=== PATIENT | male | born 1975 | race Caucasian/White ===

== ENCOUNTER → 2018-02-24 08:06 | Outpatient (CLI) | payer OTHER, SELFPAY ==
[2018-02-24 10:27] LABS: Cholesterol 175 mg/dL (200); Creatinine, Serum 1.11 mg/dL (0.70-1.30); EST Glomerular Filtration Rate 78 mL/min (>60); Est Glom Filt Rate - Afr Amer 94 mL/min (>60); Glucose 100 mg/dL (74-106); High Density Lipoprotein 36 mg/dL; Triglycerides 165 mg/dL; Very Low Density Lipoprotein 33 mg/dL (5-40)
== END ==
PROVIDERS: Family Provider Family Medicine; PCP Family Medicine; Visit Provider Family Medicine
DX: Z00.00 Encounter for general adult medical examination without abnormal findings (principal)
CPT/HCPCS: 36415; 80061; 82565; 82947

== ENCOUNTER → 2018-12-24 | Outpatient (CLI) | payer OTHER, SELFPAY ==
[2018-12-24 09:56] LABS: Absolute Lymphocyte Count 1.07 X10^3/uL (0.83-4.51); Absolute Neutrophil Count 3.7 X10^3/uL (2.0-7.7); Basophil# 0.04 X10^3/uL; Basophil% 0.7 % (0-1); Eosinophil# 0.09 X10^3/uL; Eosinophils% 1.7 % (0-5); Hematocrit 42.4 % (40-54); Hemoglobin 14.6 g/dL (13.0-16.5); Lymphocyte # 1.07 X10^3/ul (4.0); Lymphocyte % 19.8 % (19-41); Mean Corp Hgb Conc 34.4 g/dL (32-36); Mean Corpuscular Hgb 32.1 pg (27.0-32.0); Mean Corpuscular Volume 93.2 fL (80-94); Mean Platelet Vol. 11.4 fl (6.2-12.0); Monocyte# 0.54 X10^3/uL; NRBC Flagged by Analyzer 0 % (0-5); Neutrophil # 3.65 X10^3/uL (2.7-7.7); Neutrophil % 67.4 % (47-70); Platelet Count 176 K/mm3 (150-450); RBC Distribution Width CV 12.3 % (11.6-14.6); RBC Distribution Width SD 42.6 fl (35.1-43.9); Red Blood Count 4.55 M/mm3 (4.6-6.2); White Blood Count 5.4 K/mm3 (4.4-11.0)
[2018-12-24 10:17] LABS: Microalbumin,Random Urine 19.6 mg/L (NO RANGE EST.)
[2018-12-24 10:48] LABS: ALB/GLOB Ratio 1.3 RATIO (0.9-2.4); AST(SGOT) 19 U/L (15-37); Alanine Aminotransfer ALT/SGPT 32 U/L (16-61); Albumin, Serum 3.9 g/dL (3.2-5.0); Alkaline Phosphatase 69 U/L (45-117); Anion Gap 9 (5-15); BUN 15 mg/dL (7-18); BUN/Creat Ratio 14.2 RATIO (10-20); Calcium,Total 8.7 mg/dL (8.5-10.1); Chloride 109 mmol/L (98-107); Cholesterol 132 mg/dL (200); Creatinine, Serum 1.06 mg/dL (0.70-1.30); EST Glomerular Filtration Rate 82 mL/min (>60); Est Glom Filt Rate - Afr Amer 99 mL/min (>60); Globulin 3.1 g/dL (2.2-4.2); Glucose 84 mg/dL (74-106); High Density Lipoprotein 51 mg/dL; Potassium 3.8 mmol/L (3.5-5.1); Sodium Level 145 mmol/L (136-145); Thyroid Stim Hormone (TSH) 1.07 uIU/mL (0.358-3.74); Triglycerides 64 mg/dL; Very Low Density Lipoprotein 13 mg/dL (5-40)
[2018-12-28 09:10] LABS: Immunoglobulin E 73 IU/mL (6-495)
== END | disposition home or self-care (01) ==
LOC: MFPLAB 09:00
PROVIDERS: Family Provider Family Medicine; PCP Family Medicine; Referring Provider Family Medicine; Visit Provider Family Medicine
DX: J39.2 Other diseases of pharynx (principal); R53.83 Other fatigue; Z13.220 Encounter for screening for lipoid disorders
CPT/HCPCS: 36415; 80053; 80061; 82043; 82570; 82785; 84403; 84443; 85025

== ENCOUNTER → 2024-09-15 | Outpatient (CLI) | payer OTHER, SELFPAY ==
[2024-09-15 12:33] LABS: Absolute Lymphocyte Count 1.27 X10^3/uL (0.83-4.51); Absolute Neutrophil Count 4.8 X10^3/uL (2.0-7.7); Basophil# 0.02 X10^3/uL; Basophil% 0.3 % (0-1); Eosinophil# 0.18 X10^3/uL; Eosinophils% 2.6 % (0-5); Hematocrit 42.2 % (40-54); Hemoglobin 15.1 g/dL (13.0-16.5); Lymphocyte # 1.27 X10^3/ul (0.83-4.51); Lymphocyte % 18.1 % (19-41); Mean Corp Hgb Conc 35.8 g/dL (32-36); Mean Corpuscular Hgb 32.1 pg (27.0-32.0); Mean Corpuscular Volume 89.6 fL (80-94); Mean Platelet Vol. 11.5 fl (6.2-12.0); Monocyte# 0.75 X10^3/uL; Monocyte% 10.7 % (0-10); NRBC Flagged by Analyzer 0 % (0-5); Neutrophil # 4.78 X10^3/uL (2.7-7.7); Platelet Count 206 K/mm3 (150-450); RBC Distribution Width CV 12.3 % (11.6-14.6); RBC Distribution Width SD 40.3 fl (35.1-43.9); Red Blood Count 4.71 M/mm3 (4.6-6.2)
[2024-09-15 13:11] LABS: ALB/GLOB Ratio 1.7 RATIO (0.9-2.4); AST(SGOT) 79 U/L (<=37); Alanine Aminotransfer ALT/SGPT 54 U/L (<=46); Albumin, Serum 4.5 g/dL (3.5-5.0); Alkaline Phosphatase 75 U/L (40-129); Anion Gap 11 (5-15); BUN 16 mg/dL (4-19); BUN/Creat Ratio 13.6 RATIO (10-20); Calcium,Total 9.4 mg/dL (7.6-11.0); Carbon Dioxide 22.7 mmol/L (21.0-32.0); Chloride 106 mmol/L (98-108); Creatinine, Serum 1.16 mg/dL (0.70-1.20); EST Glomerular Filtration Rate 79 (>60); Globulin 2.7 g/dL (2.2-4.2); Glucose 105 mg/dL (70-99); Potassium 3.7 mmol/L (3.3-5.1); Protein, Total 7.1 g/dL (5.9-8.4); Sodium Level 139 mmol/L (133-145); Total Bilirubin 0.55 mg/dL (0.00-1.30)
== END | disposition home or self-care (01) ==
LOC: BIMLAB 10:50
PROVIDERS: PCP Family Medicine; Referring Provider Family Medicine; Visit Provider Family Medicine
DX: N52.9 Male erectile dysfunction, unspecified (principal); E66.812 Obesity, class 2
CPT/HCPCS: 36415; 80053; 84402; 84403; 84443; 85025

== ENCOUNTER → 2024-09-16 | Outpatient (CLI) | payer OTHER, SELFPAY ==
[2024-09-17 11:30] LABS: Hepatitis B Surface Antigen Nonreactive (Nonreactive); Hepatitis C Antibody Nonreactive (Nonreactive)
[2024-09-17 11:36] LABS: CRP < 3.00 mg/L (0.0-3.0)
[2024-09-18 15:08] LABS: Anti-Smooth Muscle ABS 6 Units (0-19); Deamidated Gliadin IgA 4 units (0-19); Deamidated Gliadin IgG 2 units (0-19); Endomysial Antibody IgA Negative (Negative); Hepatitis A AB, Total Negative (Negative); Immunoglobulin A 194 mg/dL (90-386); t-Transglutaminase IgA <2 U/mL (0-3)
== END | disposition home or self-care (01) ==
LOC: BIMLAB 15:43
PROVIDERS: PCP Family Medicine; Referring Provider Family Medicine; Visit Provider Family Medicine
DX: R79.89 Other specified abnormal findings of blood chemistry (principal)
CPT/HCPCS: 82784; 83516; 86140; 86255; 86708; 86803; 87340

== ENCOUNTER → 2024-10-06 | Outpatient (CLI) | payer OTHER, SELFPAY ==
--- OUTSIDE RECORDS SUMMARY | 2024-10-06 07:28 | XMS RPT_ITS | CCD ---
Author Organization [facility] Care Team Providers Care Inspector Bullet Slugs Name Role Phone Balaji DICK, Dr. Woo Primary Care Provider Balaji DICK, Dr. Woo Attending Provider [phone] Balaji DICK, Dr. Woo Referring Provider Chilo Carpio Attending Unavailable Chilo Carpio Primary Care Unavailable Chilo Carpio Referring Unavailable Chilo Carpio Primary Care Unavailable Chilo Carpio Referring Unavailable Chilo Carpio Attending Unavailable Chilo Carpio Attending Unavailable Chilo Carpio Primary Care Unavailable Chilo Carpio Referring Unavailable Problems Problem Classification Problem Date Documented Da te Episodic/Chronic Other male genital disorders (1 source) Male erectile dysfunction, unspecified; Translations: [Male erectile dysfunction, unspecified] Onset: 09-23-2024 Chronic Other screening for suspected conditions (not mental disorders or infectious disease) (2 sources) Other specified abnormal findings of blood chemistry; Translations: [Other specified abnormal findings of blood chemistry] Onset: 09-23-2024 Episodic Results Test Name Value Interpretation Reference Range Facility Testosterone, Total / Freeon 09-24-2024 TESTOSTER,FREE 7.64 ng/dL Normal 5.00-21.00 [facility] Comment on above: Order Comment: Order Date: 08/06/24 Order Info: 0024-1 - TESTF N Performed By: #### L 500.4050, L501.9520, L100.0100, L3100.5310 #### [facility] [address] [place], [address] TESTOSTER,TOTAL 386 ng/dL Normal 264-916 [facility] Comment on above: Order Comment: Order Date: 08/06/24 Order Info: 0024-1 - TESTF N Result Comment: Adul t male reference interval is based on a population of healthy nonobese males (BMI <30) between 19 and 39 years old. Sarah, et.al. JCEM 2017,102;[id number]. PMID: [id number]. Performed By: #### L 500.4050, L501.9520, L100.0100, L3100.5310 #### [facility] [address] [place], [place], [address] TESTOSTERONE,%F 1.98 Normal 1.50-4.20 [facility] Comment on above: Order Comment: Order Date: 08/06/24 Order Info: 0024-1 - TESTF N Result Comment: Perf ormed at: [facility] [address] [id number] Power Press Tender: Peirre Castro PhD, Phone: [phone] Performed at: [facility] [address] [id number] Power Press Tender: Mitesh Lion MD, Phone: [phone] Performed By: #### L 500.4050, L501.9520, L100.0100, L3100.5310 #### [facility] [address] [place], [place], [address] Anti-Smooth Muscle ABSon ANTISMOOTH MUSC 6 Units Normal 0-19 [facility] Comment on above: Order Comment: Order Date: 09/16/24 Order Info: 68855-4 - HEAT Order Info: 0751-1 - CELAB Result Comment: Nega tive 0 - 19 Weak positive 20 - 30 Moderate to strong positive >30 Actin Antibodies are found in 52-85% of patients with autoimmune hepatitis or chronic active hepatitis and in 22% of patients with primary biliary cirrhosis. Performed By: #### L 3890.6102, L3890.6301, L803.2200 #### [facility] [address] [place], [address] Celiac AB,Comprehensiveon ANTIGLIADIN IGA 4 units Normal 0-19 [facility] Comment on above: Order Comment: Order Date: 09/16/24 Order Info: - HEAT Order Info: 07504-29 - CELAB Result Comment: Nega tive 0 - 19 Weak Positive 20 - 30 Moderate to Strong Positive >30 Performed By: #### L 3410.2350, L3100.0300, L501.6710 #### [facility] [address] [place], [address] ANTIGLIADIN IGG 2 units Normal 0-19 [facility] Comment on above: Order Comment: Order Date: 09/16/24 Order Info: - HEAT Order Info: 750-04 - CELAB Result Comment: Nega tive 0 - 19 Weak Positive 20 - 30 Moderate to Strong Positive >30 Performed By: #### L 3410.2350, L3100.0300, L501.6710 #### [facility] [address] [place], [place], [id number] ENDOMYSIAL IGA Negative Normal Negative [facility] Comment on above: Order Comment: Order Date: 09/16/24 Order Info: - Order Info: 750-04 - CELAB Performed By: #### L 3410.2350, L3100.0300, L501.6710 #### [facility] [address] [place], [address] IMMUNOGLOB A QN 194 mg/dL Normal 90-386 [facility] Comment on above: Order Comment: Order Date: 09/16/24 Order Info: - Order Info: 07504-29 - CELAB Performed By: #### L 3410.2350, L3100.0300, L501.6710 #### [facility] [address] [place], [address] tTG IGA <2 Normal 0-3 [facility] Comment on above: Order Comment: Order Date: 09/16/24 Order Info: - HEAT Order Info: 07504-29 - CELAB Result Comment: Nega tive 0 - 3 Weak Positive 4 - 10 Positive >10 Tissue Transglutaminase (tTG) has been identified as the endomysial antigen. Studies have demonstr- ated that endomysial IgA antibodies have over 99% specificity for gluten sensitive enteropathy. Performed By: #### L 3410.2350, L3100.0300, L501.6710 #### [facility] [address] [place], [place], [id number] tTG IGG <2 Normal 0-5 [facility] Comment on above: Order Comment: Order Date: 09/16/24 Order Info: - HEAT Order Info: 0751-1 - CELAB Result Comment: Nega tive 0 - 5 Weak Positive 6 - 9 Positive >9 Performed By: #### L 3410.2350, L3100.0300, L56710 #### [facility] [address] [place], [address] Hepatitis A AB, Totalon 08-28 HEPATITIS A,TOT Negative Normal Negative [facility] Comment on above: Order Comment: Order Date: 09/16/24 Order Info: - HEAT Order Info: 075-1 - CELAB Result Comment: Comm ent: The HAV total antibody assay detects both IgG and IgM but does not differentiate between them. A negative result suggests susceptibility to infection. A positive result could be due to vaccination, previously resolved infection or active infection. Testing for HAV IgM should be performed if active HAV infection is suspected. [facility] offers profiles that will automatically reflex positive HAV total antibody results to IgM (e.g., panel #[id number] HAV Antibody w/ Rfx). Performed at: [address] [id number] Power Press Tender: Pierre Castro PhD, Phone: [phone] Performed By: #### L 3410.2350, L3100.0300, L5.6710 #### [facility] [address] [place], [place], [id number] CRPon 09-17-2024 C-REACTIVE PROT < 3.00 Normal 0.0-3.0 [facility] Comment on above: Order Comment: Order Date: 09/16/24 Order Info: [id number] - CRP Performed By: #### L 3410.2350, L3100.0300, L501.6710 #### [facility] [address] [facility] [place], [place], [id number] Hepatitis C Antibodyon 09-17 Hepatitis C Ab Non-Reactive Normal Nonreactive [facility] Comment on above: Order Comment: Order Date: 09/16/24 Order Info: 04659-0 - CRP Result Comment: Reac tive: Presumptive evidence of antibodies to HCV. Follow CDC recommendations for supplemental testing. Non-Reactive: Antibodies to HCV were not detected; does not exclude the possibility of exposure to HCV Reactive Results are presumptive evidence of antibodies to HCV. Follow CDC recommendations for supplemental testing. Order confirmation testing: HCV Quant by PCR testing - HCVPCR #[id number] Non Reactive: < 0.8 Equivocal: >/= 0.8 to < 1.0 Reactive: >/= 1.0 The CDC requires that a reactive/equivocal HCV antibody result be sent out for confirmation. HCV Quant by PCR testing. Performed By: #### L 3890.6102, L3890.6301, L803.2200 #### [facility] [address] [facility] [place], [place], [id number] L3890.6102on 09-17-2024 HEP B Surf Ag Non-Reactive Normal Nonreactive [facility] Comment on above: Order Comment: Order Date: 09/16/24 Order Info: [id number] - CRP Result Comment: Reac tive: Presumptive evidence of HBV. Repeatedly reactive samples must be confirmed using a neutralization test ([employer] HBsAg Confirmatory Test) Non-Reactive: HBsAg not detected; does not exclude the possibility of exposure to HBV Performed By: #### L 3890.6102, L3890.6301, L803.2200 #### [facility] [address] [place], [place], [id number] Laboratory - Microbiology an d Antimicrobial susceptibilityOrdered By: Chilo Carpio on 09-16-2024 HBV surface Ag Ql (S) Non-Reactive Nonreactive [facility] Comment on above: Reactive: Presumptiv e evidence of HBV. Repeatedly reactive samples must be confirmed using a neutralization test ([employer] HBsAg Confirmatory Test)Non-Reactive: HBsAg not detected; does not exclude the possibility of exposure to HBV No Panel InformationOrdered By: Chilo Carpio on 09-16-2024 Tissue Transglutaminase IgG Ab <2 U/mL 0-5 [facility] Comment on above: Negative 0 - 5 Weak Positive 6 - 9 Positive >9 Serum or plasma C reactive p rotein measurement (mass/volume)Ordered By: Chilo Carpio on 09-16-2024 CRP [Mass/Vol] mg/L 0.0-3.0 [facility] Serum or plasma actin IgG an tibody assay (units/volume)Ordered By: Chilo Carpio on 09-16-2024 Actin IgG Qn 6 Units 0-19 [facility] Comment on above: Negative 0 - 19 Weak positive 20 - 30 Moderate to strong positive >30 Actin Antibodies are found in 52-85% of patients with autoimmune hepatitis or chronic active hepatitis and in 22% of patients with primary biliary cirrhosis. Serum tissue transglutaminas e (tTG) IgA antibody assay (units/volume)Ordered By: Chilo Carpio on 09-16-2024 tTG IgA Qn (S) <2 U/mL 0-3 [facility] Comment on above: Negative 0 - 3 Weak Positive 4 - 10 Positive >10 Tissue Transglutaminase (tTG) has been identified as the endomysial antigen. Studies have demonstr- ated that endomysial IgA antibodies have over 99% specificity for gluten sensitive enteropathy. Absolute lymphocyte countOrd ered By: Chilo Carpio on 09-15-2024 Lymphocytes Auto (Unsp spec) [#/Vol] 1.27 10*3/uL 0.83-4.51 [facility] Absolute neutrophil countOrd ered By: Chilo Carpio on 09-15-2024 Neutrophils (Bld) [#/Vol] 4.8 10*3/uL 2.0-7.7 [facility] Anion gap in Serum or Plasma Ordered By: Chilo Carpio on 09-15-2024 Anion gap [Moles/Vol] 11 mmol/L 5-15 [facility] Automated lymphocyte count a s percentage of total leukocytesOrdered By: Chilo Carpio on 09-15-2024 Lymphocytes/100 WBC Auto (Unsp spec) 18.1 % Low 19- [facility] BUN/creatinine ratioOrdered By: Chilo Carpio on 09-15-2024 Urea nitrogen/Creatinine [Mass ratio] 13.6 mg/mg - [facility] Basophil percentageOrdered B y: Chilo Carpio on 09-15-2024 Basophils/100 WBC (Bld) 0.3 % 0-1 [facility] Bilirubin, totalOrdered By: Chilo Carpio on 09-15-2024 Bilirubin [Mass/Vol] 0.55 mg/dL 0.00-1.30 [facility] CBC W/Diff, Automatedon 08-28 Absolute Lymph 1.27 X10 3/uL Normal 0.83-4.51 [facility] Comment on above: Order Comment: Order Date: 08/06/24 Order Info: 0184-1 - CBCD Performed By: #### L 500.4050, L501.9520, L100.0100, L3100.5310 #### [facility] [address] [place], [address] Absolute Neut 4.8 X10 3/uL Normal 2.0-7.7 [facility] Comment on above: Order Comment: Order Date: 08/06/24 Order Info: 0184-1 - CBCD Performed By: #### L 500.4050, L501.9520, L100.0100, L3100.5310 #### [facility] [address] [place], [address] Basophils/100 WBC (Bld) 0.3 % Normal 0-1 [facility] Comment on above: Order Comment: Order Date: 08/06/24 Order Info: 0184-1 - CBCD Performed By: #### L 500.4050, L501.9520, L100.0100, L3100.5310 #### [facility] [address] [place], [address] Eosinophils/100 WBC (Bld) 2.6 % Normal 0-5 [facility] Comment on above: Order Comment: Order Date: 08/06/24 Order Info: 0184-1 - CBCD Performed By: #### L 500.4050, L501.9520, L100.0100, L3100.5310 #### [facility] [address] [place], [address] Erythrocyte distribution width (RBC) [Ratio] 12.3 % Normal 11.6-14.6 [facility] Comment on above: Order Comment: Order Date: 08/06/24 Order Info: 0184- - CBCD Performed By: #### L 500.4050, L501.9520, L100.0100, L3100.5310 #### [facility] [address] [place], [address] Hematocrit (Bld) [Volume fraction] 42.2 % Normal 40-54 [facility] Comment on above: Order Comment: Order Date: 08/06/24 Order Info: 0184- - CBCD Performed By: #### L 500.4050, L501.9520, L100.0100, L3100.5310 #### [facility] [address] [place], [address] Hemoglobin (Bld) [Mass/Vol] 15.1 g/dL Normal 13.0-16.5 [facility] Comment on above: Order Comment: Order Date: 08/06/24 Order Info: 0184- - CBCD Performed By: #### L 500.4050, L501.9520, L100.0100, L3100.5310 #### [facility] [address] [place], [address] IG% 0.300 Normal 0.0-0.9 [facility] Comment on above: Order Comment: Order Date: 08/06/24 Order Info: 0184-1 - CBCD Result Comment: IG% - Immature Granulocytes (promyelocytes, myelocytes and metamyelocytes) > 1% indicates that a LEFT SHIFT is Present. Performed By: #### L 500.4050, L501.9520, L100.0100, L3100.5310 #### [facility] [address] [place], [address] Lymphocytes/100 WBC (Bld) 18.1 % Low 19-41 [facility] Comment on above: Order Comment: Order Date: 08/06/24 Order Info: 0184-1 - CBCD Performed By: #### L 500.4050, L501.9520, L100.0100, L3100.5310 #### [facility] [address] [place], [address] MCH (RBC) [Entitic mass] 32.1 pg High 27.0-32.0 [facility] Comment on above: Order Comment: Order Date: 08/06/24 Order Info: 0184- - CBCD Performed By: #### L 500.4050, L501.9520, L100.0100, L3100.5310 #### [facility] [address] [place], [address] MCHC (RBC) [Mass/Vol] 35.8 g/dL Normal 32-36 [facility] Comment on above: Order Comment: Order Date: 08/06/24 Order Info: 0184-1 - CBCD Performed By: #### L 500.4050, L501.9520, L100.0100, L3100.5310 #### [facility] [address] [place], [address] MCV (RBC) [Entitic vol] 89.6 fL Normal 80-94 [facility] Comment on above: Order Comment: Order Date: 08/06/24 Order Info: 0184-1 - CBCD Performed By: #### L 500.4050, L501.9520, L100.0100, L3100.5310 #### [facility] [address] [place], [address] Monocytes/100 WBC (Bld) 10.7 % High 0-10 [facility] Comment on above: Order Comment: Order Date: 08/06/24 Order Info: 0184-1 - CBCD Performed By: #### L 500.4050, L501.9520, L100.0100, L3100.5310 #### [facility] [address] [place], [address] Neutrophils/100 WBC (Bld) 68.0 % Normal 47-70 [facility] Comment on above: Order Comment: Order Date: 08/06/24 Order Info: 0184-1 - CBCD Performed By: #### L 500.4050, L501.9520, L100.0100, L3100.5310 #### [facility] [address] [place], [address] Nucleated RBC (Bld) [#/Vol] 0 10*3/uL Normal 0-5 [facility] Comment on above: Order Comment: Order Date: 08/06/24 Order Info: 0184-1 - CBCD Performed By: #### L 500.4050, L501.9520, L100.0100, L3100.5310 #### [facility] [address] [place], [address] Platelet mean volume (Bld) [Entitic vol] 11.5 fL Normal 6.2-12.0 [facility] Comment on above: Order Comment: Order Date: 08/06/24 Order Info: 0184-1 - CBCD Performed By: #### L 500.4050, L501.9520, L100.0100, L3100.5310 #### [facility] [address] [place], [address] Platelets (Bld) [#/Vol] 206 10*3/uL Normal 150-450 [facility] Comment on above: Order Comment: Order Date: 08/06/24 Order Info: 0184-1 - CBCD Performed By: #### L 500.4050, L501.9520, L100.0100, L3100.5310 #### [facility] [address] [place], [address] RBC (Bld) [#/Vol] 4.71 10*6/uL Normal 4.6-6.2 [facility] Comment on above: Order Comment: Order Date: 08/06/24 Order Info: 0184-1 - CBCD Performed By: #### L 500.4050, L501.9520, L100.0100, L3100.5310 #### [facility] [address] [place], [address] RDW SD 40.3 fl Normal 35.1-43.9 [facility] Comment on above: Order Comment: Order Date: 08/06/24 Order Info: 0184- - CBCD Performed By: #### L 500.4050, L501.9520, L100.0100, L3100.5310 #### [facility] [address] [place], [address] WBC (Bld) [#/Vol] 7.0 10*3/uL Normal 4.4-11.0 [facility] Comment on above: Order Comment: Order Date: 08/06/24 Order Info: 0184- - CBCD Performed By: #### L 500.4050, L501.9520, L100.0100, L3100.5310 #### [facility] [address] [place], [address] Carbon dioxide, total [Moles /volume] in Central venous bloodOrdered By: Chilo Carpio on 09-15-2024 CO2 [Moles/Vol] 22.7 mmol/L 21.0-32.0 [facility] Chloride assayOrdered By: Vidal Carpio on 09-15-2024 Chloride [Moles/Vol] 106 mmol/L 98-108 [facility] Comprehensive Metabolic Prof ilon 09-15-2024 Albumin [Mass/Vol] 4.5 g/dL Normal 3.5-5.0 [facility] Comment on above: Order Comment: Order Date: 08/06/24 Order Info: 0786-1 - CMP Order Info: 3015-3 - TSH Performed By: #### L 500.4050, L501.9520, L100.0100, L3100.5310 #### [facility] [address] [place], [address] Albumin/Globulin [Mass ratio] 1.7 {ratio} Normal 0.9-2.4 [facility] Comment on above: Order Comment: Order Date: 08/06/24 Order Info: 0786-1 - CMP Order Info: 3013 - TSH Performed By: #### L 500.4050, L501.9520, L100.0100, L3100.5310 #### [facility] [address] [place], [address] ALK PHOS 75 U/L Normal 40-129 [facility] Comment on above: Order Comment: Order Date: 08/06/24 Order Info: 0786-1 - CMP Order Info: 301-3 - TSH Performed By: #### L 500.4050, L501.9520, L100.0100, L3100.5310 #### [facility] [address] [place], [address] ALT [Catalytic activity/Vol] 54 U/L High <=46 [facility] Comment on above: Order Comment: Order Date: 08/06/24 Order Info: 0786-1 - CMP Order Info: 301-3 - TSH Performed By: #### L 500.4050, L501.9520, L100.0100, L3100.5310 #### [facility] [address] [place], [address] AST [Catalytic activity/Vol] 79 U/L High <=37 [facility] Comment on above: Order Comment: Order Date: 08/06/24 Order Info: 0786-1 - CMP Order Info: 3016-3 - TSH Performed By: #### L 500.4050, L501.9520, L100.0100, L3100.5310 #### [facility] [address] [place], [address] Bilirubin [Mass/Vol] 0.55 mg/dL Normal 0.00-1.30 [facility] Comment on above: Order Comment: Order Date: 08/06/24 Order Info: 0786-1 - CMP Order Info: 3 - TSH Performed By: #### L 500.4050, L501.9520, L100.0100, L3100.5310 #### [facility] [address] [place], [address] BUN/CRE 13.6 RATIO Normal 10-20 [facility] Comment on above: Order Comment: Order Date: 08/06/24 Order Info: 0786- - CMP Order Info: 3015-06 - TSH Performed By: #### L 500.4050, L501.9520, L100.0100, L3100.5310 #### [facility] [address] [place], [address] Calcium [Mass/Vol] 9.4 mg/dL Normal 7.6-11.0 [facility] Comment on above: Order Comment: Order Date: 08/06/24 Order Info: 0786- - CMP Order Info: 30109-29 - TSH Performed By: #### L 500.4050, L501.9520, L100.0100, L3100.5310 #### [facility] [address] [place], [address] Chloride [Moles/Vol] 106 mmol/L Normal 98-108 [facility] Comment on above: Order Comment: Order Date: 08/06/24 Order Info: 0786-1 - CMP Order Info: 30109-29 - TSH Performed By: #### L 500.4050, L501.9520, L100.0100, L3100.5310 #### [facility] [address] [place], [address] CO2 [Moles/Vol] 22.7 mmol/L Normal 21.0-32.0 [facility] Comment on above: Order Comment: Order Date: 08/06/24 Order Info: 0786-1 - CMP Order Info: 3 - TSH Performed By: #### L 500.4050, L501.9520, L100.0100, L3100.5310 #### [facility] [address] [place], [address] Creatinine [Mass/Vol] 1.16 mg/dL Normal 0.70-1.20 [facility] Comment on above: Order Comment: Order Date: 08/06/24 Order Info: 0786-1 - [facility] Order Info: 3015-06 - TSH Performed By: #### L 500.4050, L501.9520, L100.0100, L3100.5310 #### [facility] [address] [place], [address] GAP 11 Normal 5-15 [facility] Comment on above: Order Comment: Order Date: 08/06/24 Order Info: 0786-1 - [facility] Order Info: 3015-06 - TSH Performed By: #### L 500.4050, L501.9520, L100.0100, L3100.5310 #### [facility] [address] [place], [address] GFR/1.73 sq M.predicted among non-blacks MDRD (S/P/Bld) [Vol rate/Area] 79 mL/min/{1.73_m2} Normal >60 [facility] Comment on above: Order Comment: Order Date: 08/06/24 Order Info: 0786-1 - [facility] Order Info: 3015-06 - TSH Result Comment: mL/m in/1.73m2 CKD-EPI Creatinine Equation (2020) Performed By: #### L 500.4050, L501.9520, L100.0100, L3100.5310 #### [facility] [address] [place], [address] Globulin (S) [Mass/Vol] 2.7 g/dL Normal 2.2-4.2 [facility] Comment on above: Order Comment: Order Date: 08/06/24 Order Info: 0786-1 - CMP Order Info: 3 - TSH Performed By: #### L 500.4050, L501.9520, L100.0100, L3100.5310 #### [facility] [address] [place], [address] Glucose [Mass/Vol] 105 mg/dL High 70-99 [facility] Comment on above: Order Comment: Order Date: 08/06/24 Order Info: 0786- - [facility] Order Info: 3013 - TSH Performed By: #### L 500.4050, L501.9520, L100.0100, L3100.5310 #### [facility] [address] [place], [address] Potassium [Moles/Vol] 3.7 mmol/L Normal 3.3-5.1 [facility] Comment on above: Order Comment: Order Date: 08/06/24 Order Info: 0786-1 - CMP Order Info: 3013 - TSH Performed By: #### L 500.4050, L501.9520, L100.0100, L3100.5310 #### [facility] [address] [place], [address] Sodium [Moles/Vol] 139 mmol/L Normal 133-145 [facility] Comment on above: Order Comment: Order Date: 08/06/24 Order Info: 0786-1 - [facility] Order Info: 3013 - TSH Performed By: #### L 500.4050, L501.9520, L100.0100, L3100.5310 #### [facility] [address] [place], [address] T PROT 7.1 g/dL Normal 5.9-8.4 [facility] Comment on above: Order Comment: Order Date: 08/06/24 Order Info: 0786-1 - CMP Order Info: 3016-3 - TSH Performed By: #### L 500.4050, L501.9520, L100.0100, L3100.5310 #### [facility] [address] [place], [place], [id number] Urea nitrogen [Mass/Vol] 16 mg/dL Normal 4-19 [facility] Comment on above: Order Comment: Order Date: 08/06/24 Order Info: 0786-1 - CMP Order Info: 3016-3 - TSH Performed By: #### L 500.4050, L501.9520, L100.0100, L3100.5310 #### [facility] [address] [place], [place], [address] Eosinophil percentageOrdered By: Chilo Carpio on 09-15-2024 Eosinophils/100 WBC (Bld) 2.6 % 0-5 [facility] Erythrocyte distribution wid th ratioOrdered By: Chilo Carpio on 09-15-2024 Erythrocyte distribution width (RBC) [Ratio] 12.3 % 11.6-14.6 [facility] Erythrocyte distribution wid th standard deviationOrdered By: Chilo Carpio on 09-15-2024 Erythrocyte distribution width (RBC) [Ratio] 40.3 fl 35.1-43.9 [facility] Glomerular filtration rate ( GFR) estimation/1.73 sq m using serum, plasma, or whole bOrdered By: Chilo Carpio on 09-15-2024 GFR/1.73 sq M.predicted among non-blacks MDRD (S/P/Bld) [Vol rate/Area] 79 mL/min/{1.73_m2} >60 [facility] Comment on above: mL/min/1.73m2 CKD-EP I Creatinine Equation (2020) Hematocrit Auto (Bld) [Volum e fraction]Ordered By: Chilo Carpio on 09-15-2024 Hematocrit (Bld) [Volume fraction] 42.2 % 40-54 [facility] Hemoglobin measurementOrdere d By: Chilo Carpio on 09-15-2024 Hemoglobin (Bld) [Mass/Vol] 15.1 g/dL 13.0-16.5 [facility] Immature granulocytes/100 WB C Auto (Bld)Ordered By: Chilo Carpio on 09-15-2024 Immature granulocytes/100 WBC (Bld) 0.300 % 0.0-0.9 [facility] Comment on above: IG% - Immature Granu locytes (promyelocytes, myelocytes and metamyelocytes) > 1% indicates that a LEFT SHIFT is Present. Laboratory - Chemistry and C hemistry - challengeOrdered By: Chilo Carpio on 09-15-2024 AST [Catalytic activity/Vol] 79 U/L High <38 [facility] MCV (mean corpuscular volume ) determinationOrdered By: Chilo Carpio on 09-15-2024 MCV (RBC) [Entitic vol] 89.6 fL 80-94 [facility] Mean corpuscular hemoglobin (MCH) determinationOrdered By: Chilo Carpio on 09-15-2024 MCH (RBC) [Entitic mass] 32.1 pg High 27.0-32.0 [facility] Mean corpuscular hemoglobin concentration (MCHC) determinationOrdered By: Chilo Carpio on 09-15-2024 MCHC (RBC) [Mass/Vol] 35.8 g/dL 32-36 [facility] Mean platelet volume determi nationOrdered By: Chilo Carpio on 09-15-2024 Platelet mean volume (Bld) [Entitic vol] 11.5 fL 6.2-12.0 [facility] Monocyte percentageOrdered B y: Chilo Carpio on 09-15-2024 Monocytes/100 WBC (Bld) 10.7 % High 0-10 [facility] Neutrophil percentageOrdered By: Chilo Carpio on 09-15-2024 Neutrophils/100 WBC (Bld) 68.0 % 47-70 [facility] Nucleated red blood cell per centageOrdered By: Chilo Carpio on 09-15-2024 Nucleated RBC/100 WBC (Bld) [Ratio] 0 % 0-5 [facility] Platelet countOrdered By: Vidal Carpio on 09-15-2024 Platelets (Bld) [#/Vol] 206 10*3/uL 150-450 [facility] Potassium measurement (mass/ volume)Ordered By: Chilo Carpio on 09-15-2024 Potassium (Unsp spec) [Mass/Vol] 3.7 mmol/L 3.3-5.1 [facility] RBC Auto (Bld) [#/Vol]Ordere d By: Chilo Carpio on 09-15-2024 RBC (Bld) [#/Vol] 4.71 10*6/uL 4.6-6.2 [facility] Serum creatinine measurement (mass/volume)Ordered By: Chilo Carpio on 09-15-2024 Creatinine [Mass/Vol] 1.16 mg/dL 0.70-1.20 [facility] Serum globulin measurementOr dered By: Chilo Carpio on 09-15-2024 Globulin (S) [Mass/Vol] 2.7 g/dL 2.2-4.2 [facility] Serum glucose measurement (m ass/volume)Ordered By: Chilo Carpio on 09-15-2024 Glucose [Mass/Vol] 105 mg/dL High 70-99 [facility] Serum or plasma alanine garcia otransferase (ALT) measurementOrdered By: Chilo Carpio on 09-15-2024 ALT [Catalytic activity/Vol] 54 U/L High <47 [facility] Serum or plasma albumin luis urement (mass/volume)Ordered By: Chilo Carpio on 09-15-2024 Albumin [Mass/Vol] 4.5 g/dL 3.5-5.0 [facility] Serum or plasma albumin/glob ulin mass ratioOrdered By: Chilo Carpio on 09-15-2024 Albumin/Globulin [Mass ratio] 1.7 {ratio} 0.9-2.4 [facility] Serum or plasma alkaline reji sphatase measurementOrdered By: Chilo Carpio on 09-15-2024 ALP [Catalytic activity/Vol] 75 U/L 40-129 [facility] Serum or plasma calcium luis urement (mass/volume)Ordered By: Chilo Carpio on 09-15-2024 Calcium [Mass/Vol] 9.4 mg/dL 7.6-11.0 [facility] Serum or plasma urea nitroge n measurement (mass/volume)Ordered By: Chilo Carpio on 09-15-2024 Urea nitrogen [Mass/Vol] 16 mg/dL 4-19 [facility] Sodium levelOrdered By: Chilo Carpio on 09-15-2024 Sodium [Moles/Vol] 139 mmol/L 133-145 [facility] TSH DL <= 0.005 mIU/L QnOrde red By: Chilo Carpio on 09-15-2024 TSH Qn 2.750 uIU/mL 0.300-4.200 [facility] Thyroid Stim Hormone (TSH)on 09-15-2024 TSH 2.750 uIU/mL Normal 0.300-4.200 [facility] Comment on above: Order Comment: Order Date: 08/06/24 Order Info: [id number] - CMP Order Info: [id number] - TSH Performed By: #### L 500.4050, L501.9520, L100.0100, L3100.5310 #### [facility] [address] [place], [place], [id number] Total proteinOrdered By: Angélica Carpio on 09-15-2024 Protein [Mass/Vol] 7.1 g/dL 5.9-8.4 [facility] White blood cell (WBC) count Ordered By: Chilo Carpio on 09-15-2024 WBC (Bld) [#/Vol] 7.0 10*3/uL 4.4-11.0 [facility] Encounters Encounter Date Encounter Type Care Provider Facility Start: 10-06-2024 ambulatory Chilo Carpio Facility:[facility] Start: 09-16-2024 End: 09-16-[address] Chilo Carpio MD Work Phone: [facility] Work Phone: Start: 09-16-2024 End: 09-16-[address] Chilo Carpio MD -Laboratory [facility] Start: 09-15-2024 End: 09-16-[address] Chilo Carpio MD Work Phone: [facility] Work Phone: Start: 09-15-2024 End: 09-15-[address] Chilo Carpio MD -Laboratory [facility] Start: 09-15-2024 End: 09-15-2024 ambulatory Chilo Carpio Facility:[facility] Procedures Date Procedure Procedure Detail Performing Clinician Start: 09-16-[address] IgA level Dr. Chilo Carpio MD Work Phone: Start: 09-16-2024 Gliadin antibody, Ig A measurement Dr. Chilo Carpio MD Work Phone: Comment on above: Negative 0 - 19 Weak Positive 20 - 30 Moderate to Strong Positive >30 Start: 09-16-2024 Gliadin antibody, Ig G measurement Dr. Chilo Carpio MD Work Phone: Comment on above: Negative 0 - 19 Weak Positive 20 - 30 Moderate to Strong Positive >30 Start: 09-16-2024 Hepatitis A virus an tibody, total measurement Dr. Chilo Carpio MD Work Phone: Comment on above: Comment: The HAV tot al antibody assay detects both IgG andIgM but does not differentiate between them. A negativeresult suggests susceptibility to infection. A positiveresult could be due to vaccination, previously resolvedinfection or active infection. Testing for HAV IgM shouldbe performed if active HAV infection is suspected. [facility] profiles that will automatically reflex positive HAVtotal antibody results to IgM (e.g., panel #[id number] HAVAntibody w/ Rfx).Performed at: [address] [id number] Director: Pierre Castro PhD, Phone: [phone] Start: 09-16-2024 Hepatitis C antibody measurement Dr. Chilo Carpio MD Work Phone: Comment on above: Reactive: Presumptiv e evidence of antibodies to HCV. Follow CDC recommendations for supplemental testing.Non-Reactive: Antibodies to HCV were not detected; does not exclude the possibility of exposure to HCVReactive Results are presumptive evidence of antibodies to HCV. Follow CDC recommendations for supplemental testing.Order confirmation testing: HCV Quant by PCR testing - HCVPCR #[id number] Non Reactive: < 0.8 Equivocal: >/= 0.8 to < 1.0 Reactive: >/= 1.0The CDC requires that a reactive/equivocal HCV antibody result be sent out for confirmation. HCV Quant by PCR testing. Start: 09-16-2024 Measurement of immun oglobulin A in serum specimen Dr. Chilo Carpio MD Work Phone: Plan of Treatment Date Care Activity Detail Author Serum testosterone measurement [facility] Testosterone Free [M ass/volume] in Serum or Plasma [facility] Testosterone measurement [facility] Payers Date Payer Category Payer Private Health Insurance [id number] 2024 Self-pay Private Health Insurance [employer] [id number] Unknown ANTHLUPIS [id number] Unknown [id number] Unknown [id number] Social History Date Type Detail Facility Start: [facility]03-[facility] Start: 1975 Sex Assigned At Male [facility] Evaluation note Note Date & Type Note Facility Evaluation note No assessment information availa ble [facility] Work Phone: Reason for referral (narrative) Note Date & Type Note Facility Reason for referral (narrative) No reason for referral information available [facility] Work Phone: Summary Purpose Family History No Family History Records Found Advance Directives No Advanced Directives Records Found Additional Source Comments Care Teams (unrecognized sec tion and content) Team Status: Active Member Role Status Dates Dr. Chilo Carpio MD Family Provider Active Dr. Chilo Carpio MD Primary Care Provider Active Team Status: Inactive Member Role Status Dates Dr. Chilo Carpio MD Primary Care Provider Active Start: September 15, 2024 End: September 15, 2024 Dr. Chilo Carpio MD Attending Provider Active St art: September 15, 2024 End: September 15, 2024 Dr. Chilo Carpio MD Referring Provider Active St art: September 15, 2024 End: September 15, 2024 Team Status: Active Member Role Status Dates Dr. Chilo Carpio MD Primary Care Provider Active Start: September 16, 2024 Dr. Chilo Carpio MD Attending Provider Active St art: September 16, 2024 Dr. Chilo Carpio MD Referring Provider Active St art: September 16, 2024 Team Status: Inactive Member Role Status Dates Dr. Chilo Carpio MD Primary Care Provider Active Start: September 16, 2024 End: September 16, 2024 Dr. Chilo Carpio MD Attending Provider Active St art: September 16, 2024 End: September 16, 2024 Dr. Chilo Carpio MD Referring Provider Active St art: September 16, 2024 End: September 16, 2024 Goals (unrecognized section and content) Goals may be documented in a n alternate sectionGoals may be documented in an alternate section (unrecognized sect ion and content) No Status Records Found INFORMATION SOURCE (unrecogn ized section and content) DATE CREATED AUTHOR 10/06/2024 [facility] FOR RECORDS PERTAINING TO PATIENTS WHO ARE OR HAVE BEEN ENROLLED IN A CHEMICAL DEPENDENCY/SUBSTANCEABUSE PROGRAM, SOME INFORMATION MAY BE OMITTED. This clinical summary was aggregated from multiple sources. Caution should be exercised in using it in the provision of clinical care. This summary normalizes information from multiple sources, and as a consequence, information in this document may materially change the coding, format and clinical context of patient data. In addition, data may be omitted in some cases. CLINICAL DECISIONS SHOULD BE BASED ON THE PRIMARY CLINICAL RECORDS. [facility]. provides no warranty or guarantee of the accuracy or completeness of information in this document.
--- NOTE | 2024-10-06 07:30 | US_ITS ---
PROCEDURE: ABD LIMITED W/ ELASTOGRAPHY REASON FOR EXAM: ELEVATED LIVER ENZYMES COMPARISON: None. TECHNIQUE: Right upper quadrant abdominal ultrasound. Himanshu ElastQ Imaging shear wave elastography for non-invasive assessment of liver tissue stiffness. Himanshu EPIQ Elite. FINDINGS: LIVER: Size: Enlarged (hepatomegaly) Length: 20.2 cm Echotexture: Diffusely echogenic suggesting fatty infiltration Contour: Normal Lesions: None identified Elastography: EQI Med: 10 kPa EQI Med Job: 1.6 m/s IQR/Med: 12.6 %* GALLBLADDER: Normal COMMON BILE DUCT: Normal measuring 5.3 mm . PANCREAS: Obscured by bowel gas. Visualized portions of the right kidney are unremarkable. No right upper quadrant ascites. US/ABD Limited w/ Elastography IMPRESSION: MODERATE HEPATIC FIBROSIS Hepatomegaly and diffuse fatty infiltration of the liver. Reference Values: SRU <1.37 m/s (5.7kPa): No to mild fibrosis 1.37 m/s - 2.2 m/s: Moderate to severe fibrosis >2.2 m/s (15kPa): Significant fibrosis / cirrhosis METAVIR Score F2 or higher: 1.34 m/s (5.7kPa) F3 or higher: 1.55 m/s (7.3kPa) F4: 1.80 m/s (10kPa) * If the IQR/Med is >30%, the variance in the measurements is a large and the a ccuracy of the measurement may be in question. Reading Location: [place] [address]
== END | disposition home or self-care (01) ==
PROVIDERS: PCP Family Medicine; Referring Provider Family Medicine; Visit Provider Family Medicine
DX: R79.89 Other specified abnormal findings of blood chemistry (principal)
CPT/HCPCS: 76705; 76981

== ENCOUNTER → 2025-02-10 | Outpatient (CLI) | payer OTHER, SELFPAY ==
[2025-02-10 15:06] LABS: Prothrombin Time (Protime)PT. 13.2 SECONDS (11.7-14.9)
[2025-02-10 15:41] LABS: Ferritin 809 ng/mL (37-417); HIV Nonreactive (Nonreactive); Iron 88 ug/dL (65-175); Iron Binding Capacity,Total 255 ug/dL (250-450); Iron Binding Capacity,Unsat 167 ug/dL (228-428)
[2025-02-10 15:50] LABS: AST(SGOT) 20 U/L (<=37); Alanine Aminotransfer ALT/SGPT 26 U/L (<=46); Albumin, Serum 4.6 g/dL (3.5-5.0); Alkaline Phosphatase 64 U/L (40-129); Anion Gap 11 (5-15); BUN 18 mg/dL (4-19); BUN/Creat Ratio 18.8 RATIO (10-20); Calcium,Total 9.3 mg/dL (7.6-11.0); Carbon Dioxide 22.6 mmol/L (21.0-32.0); Chloride 106 mmol/L (98-108); Cholesterol 137 mg/dL (<=200); Globulin 2.6 g/dL (2.2-4.2); Glucose 94 mg/dL (70-99); Low Density Lipoprotein Calc. 76 mg/dL; Potassium 4.0 mmol/L (3.3-5.1); Triglycerides 68 mg/dL; Very Low Density Lipoprotein 14 mg/dL (5-40); cholesterol:hdl ratio screen 2.90
[2025-02-12 13:08] LABS: ANTINUCLEAR ANTIBODIES DIRECT Negative (Negative); Anti-Smooth Muscle ABS 6 Units (0-19); GGTP 15 IU/L (0-65); HEPATITIS B SURFACE AG Negative (Negative); Hep C Antibodies Non Reactive (Non Reactive)
== END | disposition home or self-care (01) ==
PROVIDERS: PCP Family Medicine; Referring Provider Internal Medicine; Visit Provider Internal Medicine
DX: K70.10 Alcoholic hepatitis without ascites (principal); R74.8 Abnormal levels of other serum enzymes
CPT/HCPCS: 36415; 80053; 80061; 80074; 82390; 82728; 82977; 83036; 83516; 83540; 83550; 85610; 86038; 86225; 86235; 86703; 86704; 86706

== ENCOUNTER → 2025-02-15 | Outpatient (CLI) | payer OTHER, SELFPAY ==
--- OUTSIDE RECORDS SUMMARY | 2025-02-15 12:32 | XMS RPT_ITS | CCD ---
Author Organization [facility] Care Team Providers Care Ore Dressing Engineer Name Role Phone Balaji DICK, Dr. Woo Primary Care Provider [phone] Balaji DICK, Dr. Woo Attending Provider Balaji DICK, Dr. Woo Referring Provider Tulio DICK, Dr. Lao Attending Provider Chilo Carpio Primary Care Unavailable Shilo Antunez Attending Unavailable Shilo Antunez Referring Unavailable Chilo Carpio Primary Care Unavailable Shilo Antunez Attending Unavailable Chilo Carpio Referring Unavailable Chilo Carpio Primary Care Unavailable Chilo Carpio Attending Unavailable Chilo Carpio Referring Unavailable Carpio, Chilo Primary Care Unavailable Chilo Carpio Attending Unavailable Balaji Chilo Referring Unavailable Balaji Chilo Referring Unavailable Chilo Carpio Primary Care Unavailable Chilo Carpio Attending Unavailable Medications Current Medications Medication Drug Class(es) Dates Sig (Normalized) Sig (Original) 24 hr buPROPion hydrochloride 150 mg extended release oral tablet (1 source) Aminoketone Start: 10-16-2024 take 1 tablet by mouth twice daily Bupropion Hcl (Wellbutrin Xl) 150 mg tablet extended release 24 hr Active 150 mg PO TWICE A DAY October 16, 2024 12:00am sildenafil 100 mg oral tablet (1 source) Phosphodiesterase 5 Inhibitor Start: 10-16-2024 Sildenafil (Viagra) 100 mg tablet Active 100 mg PO daily as needed October 16, 2024 12:00am administer 30 minutes to 4 hours before activity Problems Active Problems Problem Classification Problem Date Documented Da te Episodic/Chronic Other male genital disorders (1 source) Male erectile dysfunction, unspecified; Translations: [Male erectile dysfunction, unspecified] Onset: 09-23-2024 Chronic Past or Other Problems Problem Classification Problem Date Documented Da te Episodic/Chronic Other screening for suspected conditions (not mental disorders or infectious disease) (1 source) Other specified abnormal findings of blood chemistry; Translations: [Other specified abnormal findings of blood chemistry] Onset: 10-14-2024 Episodic Results Test Name Value Interpretation Reference Range Facility [facility] w/ Reflex Mult Confirmon 02-12-2025 FRANCESCA,DIRECT Negative Normal Negative [facility] Comment on above: Result Comment: Perf ormed at: [facility] [id number] Body Designer: Pierre Castro PhD, Phone: [phone] Performed By: #### L 300.3900, L503.6550, L3000.0375, L800.1280, L501.9985, L3890.6202, L3100.5450, L803.2200, L503.6030, L3400.0700, L500.4050, L501.5101, L500.4100, L3890.6006, L3100.0460 #### [facility] [address] [place], [place], [id number] Anti-Mitochondrial ABon 10- ANTIMITOCHON AB <20.0 Normal 0.0-20.0 [facility] Comment on above: Result Comment: Nega tive 0.0 - 20.0 Equivocal 20.1 - 24.9 Positive >24.9 Mitochondrial (M2) Antibodies are found in 90-96% of patients with primary biliary cirrhosis. Performed By: #### L 3890.6102, L3890.6301, L803.2203 #### [facility] [address] [place], [address] Anti-Smooth Muscle ABSon ANTISMOOTH MUSC 6 Units Normal 0-19 [facility] Comment on above: Result Comment: Nega tive 0 - 19 Weak positive 20 - 30 Moderate to strong positive >30 Actin Antibodies are found in 52-85% of patients with autoimmune hepatitis or chronic active hepatitis and in 22% of patients with primary biliary cirrhosis. Performed By: #### L 3890.6102, L3890.6301, L803.2203 #### [facility] [address] [place], [address] Ceruloplasminon 02-12-2025 CERULOPLASMIN 20.7 mg/dL Normal 16.0-31.0 [facility] Comment on above: Performed By: #### L 3890.6102, L3890.6301, L803.2200 #### [facility] [address] [place], [address] Hepatitis B Core Ab Totalon 02-12-2025 HEP B CORE,TOT Negative Normal Negative [facility] Comment on above: Result Comment: Perf ormed at: [facility] [id number] Body Designer: Pierre Castro PhD, Phone: [phone] Performed By: #### L 3890.6102, L3890.6301, L803.2200 #### [facility] [address] [place], [address] Hepatitis Panel Acuteon 01-27 COMMENT Comment Normal . [facility] Comment on above: Result Comment: Not infected with HCV unless early or acute infection is suspected (which may be delayed in an immunocompromised individual), or other evidence exists to indicate HCV infection. Performed By: #### L 3890.6102, L3890.6301, L803.2200 #### [facility] [address] [place], [address] HEP B CORE,IgM Negative Normal Negative [facility] Comment on above: Performed By: #### L 3890.6102, L3890.6301, L803.2200 #### [facility] [address] [place], [address] HEP B SURF AG Negative Normal Negative [facility] Comment on above: Performed By: #### L 3890.6102, L3890.6301, L803.2200 #### [facility] [address] [place], [address] HEP C VIRUS AB Non-Reactive Normal Non Reactive [facility] Comment on above: Performed By: #### L 3890.6102, L3890.6301, L803.2200 #### [facility] [address] [place], [address] HEPATITIS A-IgM Negative Normal Negative [facility] Comment on above: Result Comment: A ne gative anti-HAV IgM result suggests no recent or current HAV infection. Performed By: #### L 3890.6102, L3890.6301, L803.2200 #### [facility] [address] [place], [address] L501.5101on 02-12-2025 GGTP 15 IU/L Normal 0-65 [facility] Comment on above: Performed By: #### L 3890.6102, L3890.6301, L803.2200 #### [facility] [address] [place], [address] Comprehensive Metabolic Prof ilon 02-10-2025 Albumin [Mass/Vol] 4.6 g/dL Normal 3.5-5.0 [facility] Comment on above: Result Comment: AMENDED REPORT 02/10/251549 ALB previously reported as: 4.7 g/dL Performed By: #### L 3890.6102, L3890.6301, L803.2200 #### [facility] [address] [place], [address] Albumin/Globulin [Mass ratio] 1.8 {ratio} Normal 0.9-2.4 [facility] Comment on above: Result Comment: AMENDED REPORT 02/10/251549 A/G previously reported as: 2.3 RATIO Performed By: #### L 3890.6102, L3890.6301, L803.2200 #### [facility] [address] [place], [address] ALK PHOS 64 U/L Normal 40-129 [facility] Comment on above: Result Comment: AMENDED REPORT 02/10/251549 ALK P previously reported as: 66 U/L Performed By: #### L 3890.6102, L3890.6301, L803.2200 #### [facility] [address] [place], [address] ALT [Catalytic activity/Vol] 26 U/L Normal <=46 [facility] Comment on above: Result Comment: AMENDED REPORT 02/10/251549 ALT previously reported as: 28 U/L Performed By: #### L 3890.6102, L3890.6301, L803.2200 #### [facility] [address] [place], [address] AST [Catalytic activity/Vol] 20 U/L Normal <=37 [facility] Comment on above: Performed By: #### L 3890.6102, L3890.6301, L803.2200 #### [facility] [address] [place], [address] Bilirubin [Mass/Vol] 0.78 mg/dL Normal 0.00-1.30 [facility] Comment on above: Result Comment: AMENDED REPORT 02/10/251549 T BILI previously reported as: 0.84 mg/dL Performed By: #### L 3890.6102, L3890.6301, L803.2200 #### [facility] [address] [place], [address] BUN/CRE 18.8 RATIO Normal 10-20 [facility] Comment on above: Performed By: #### L 3890.6102, L3890.6301, L803.2200 #### [facility] [address] [place], [address] Calcium [Mass/Vol] 9.3 mg/dL Normal 7.6-11.0 [facility] Comment on above: Result Comment: AMENDED REPORT 02/10/251549 CA previously reported as: 9.2 mg/dL Performed By: #### L 3890.6102, L3890.6301, L803.2200 #### [facility] [address] [place], [address] Chloride [Moles/Vol] 106 mmol/L Normal 98-108 [facility] Comment on above: Performed By: #### L 3890.6102, L3890.6301, L803.2200 #### [facility] [address] [place], [address] CO2 [Moles/Vol] 22.6 mmol/L Normal 21.0-32.0 [facility] Comment on above: Result Comment: AMENDED REPORT 02/10/251549 CO2 previously reported as: 24.0 mmol/L Performed By: #### L 3890.6102, L3890.6301, L803.2200 #### [facility] [address] [place], [address] Creatinine [Mass/Vol] 0.97 mg/dL Normal 0.70-1.20 [facility] Comment on above: Result Comment: AMENDED REPORT 02/10/251549 CREAT,SERUM previously reported as: 0.94 mg/dL Performed By: #### L 3890.6102, L3890.6301, L803.2200 #### [facility] [address] [place], [address] GAP 11 Normal 5-15 [facility] Comment on above: Result Comment: AMENDED REPORT 02/10/251549 GAP previously reported as: 11 Performed By: #### L 3890.6102, L3890.6301, L803.2200 #### [facility] [address] [place], [address] Globulin (S) [Mass/Vol] 2.6 g/dL Normal 2.2-4.2 [facility] Comment on above: Result Comment: AMENDED REPORT 02/10/251549 GLOB previously reported as: 2.1 L g/dL Performed By: #### L 3890.6102, L3890.6301, L803.2200 #### [facility] [address] [place], [address] Glucose [Mass/Vol] 94 mg/dL Normal 70-99 [facility] Comment on above: Performed By: #### L 3890.6102, L3890.6301, L803.2200 #### [facility] [address] [place], [address] Potassium [Moles/Vol] 4.0 mmol/L Normal 3.3-5.1 [facility] Comment on above: Result Comment: AMENDED REPORT 02/10/251549 K previously reported as: 4.1 mmol/L Performed By: #### L 3890.6102, L3890.6301, L803.2200 #### [facility] [address] [place], [address] Sodium [Moles/Vol] 140 mmol/L Normal 133-145 [facility] Comment on above: Result Comment: AMENDED REPORT 02/10/251549 NA previously reported as: 141 mmol/L Performed By: #### L 3890.6102, L3890.6301, L803.2200 #### [facility] [address] [place], [address] T PROT 7.1 g/dL Normal 5.9-8.4 [facility] Comment on above: Result Comment: AMENDED REPORT 02/10/250 T PROT previously reported as: 6.8 g/dL Performed By: #### L 3890.6102, L3890.6301, L803.2200 #### [facility] [address] [place], [address] Urea nitrogen [Mass/Vol] 18 mg/dL Normal 4-19 [facility] Comment on above: Performed By: #### L 3890.6102, L3890.6301, L803.2200 #### [facility] [address] [place], [address] Ferritinon 02-10-2025 Ferritin [Mass/Vol] 809 ng/mL High 37-417 [facility] Comment on above: Performed By: #### L 3890.6102, L3890.6301, L803.2200 #### [facility] [address] [place], [address] HIVon 02-10-2025 HIV Non-Reactive Normal Nonreactive [facility] Comment on above: Result Comment: Non- Reactive Reactive Repeatedly reactive samples must be confirmed according to CDC recommended confirmatory algorithms. The subresults for either HIVAG or AHIV can be used as an aid in the selection of the confirmation algorithm for reactive samples. Send out specimens with Reactive results to [facility] for confirmation. Order the HIV antibody detection and differentiation: lc#[id number] Performed By: #### L 3890.6102, L3890.6301, L803.2200 #### [facility] [address] [place], [address] Hemoglobin A1con 02-10-2025 HbA1c (Bld) [Mass fraction] 5.2 % Normal <=5.6 [facility] Comment on above: Result Comment: Norm al < 5.7 % Prediabetic 5.7 - 6.4 % Diabetic >or= 6.5 % Please note range changes. Performed By: #### L 3890.6102, L3890.6301, L803.2200 #### [facility] [address] [place], [address] Hepatitis B Surface Antibody on 02-10-2025 HEP B Surf Ab Non-Reactive Normal [facility] Comment on above: Result Comment: <8.5 mIU/mL: Non-Reactive 8.5<= x <11.5 mIU/mL: Indeterminate >=11.5 mIU/mL: Reactive Non Reactive: Inconsistent with immunity less than <10 mIU/mL Reactive: Consistent with immunity greater than or equal to 10 mIU/mL Performed By: #### L 3890.6102, L3890.6301, L803.2200 #### [facility] [address] [place], [address] Iron+Iron Binding Capacityon 02-10-2025 Iron [Mass/Vol] 88 ug/dL Normal 65-175 [facility] Comment on above: Performed By: #### L 3890.6102, L3890.6301, L803.2200 #### [facility] [address] [place], [address] IRON SATURATION 34.6 Normal 9-55 [facility] Comment on above: Performed By: #### L 3890.6102, L3890.6301, L803.2200 #### [facility] [address] [place], [address] TIBC 255 ug/dL Normal 250-450 [facility] Comment on above: Performed By: #### L 3890.6102, L3890.6301, L803.2200 #### [facility] [address] [place], [address] UIBC 167 ug/dL Low 228-428 [facility] Comment on above: Performed By: #### L 3890.6102, L3890.6301, L803.2200 #### [facility] [address] [place], [address] Lipid Profileon 02-10-2025 CHOL:HDL 2.90 Normal [facility] Comment on above: Performed By: #### L 3890.6102, L3890.6301, L803.2200 #### [facility] [address] [place], [address] Cholesterol [Mass/Vol] 137 mg/dL Normal <=200 [facility] Comment on above: Result Comment: Chol esterol level, Desirable <200 mg/dL Borderline high cholesterol 200-239 mg/dL High cholesterol >=240 mg/dL Recommendations of the NCEP Adult Treatment Panel for the following risk-cutoff thresholds for the [place] population. Performed By: #### L 3890.6102, L3890.6301, L803.2200 #### [facility] [address] [place], [address] Cholesterol in HDL [Mass/Vol] 47 mg/dL Normal [facility] Comment on above: Result Comment: Denia onal Cholesterol Education Program (NCEP) guidelines: <40 mg/dL: Low HDL-cholesterol (major risk factor for CHD) >= 60 mg/dL: High HDL-cholesterol (negative risk factor for CHD) HDL-cholesterol is affected by a number of factors, e.g. smoking, exercise, hormones, sex and age. Performed By: #### L 3890.6102, L3890.6301, L803.2200 #### [facility] [address] [place], [address] Cholesterol in LDL [Mass/Vol] 76 mg/dL Normal [facility] Comment on above: Result Comment: Bord xloyrk=790-900 mg/dL Higher Wemv=825 mg/dL or greater Friedwald Equation for LDL-C Performed By: #### L 3890.6102, L3890.6301, L803.2200 #### [facility] [address] [place], [address] Cholesterol in VLDL [Mass/Vol] 14 mg/dL Normal 5-40 [facility] Comment on above: Performed By: #### L 3890.6102, L3890.6301, L803.2200 #### [facility] [address] [place], [place], [id number] Triglyceride [Mass/Vol] 68 mg/dL Normal [facility] Comment on above: Result Comment: The drugs N-Acetylcysteine and Metamizole may falsely depress this assay. Normal range: <150 mg/dL Borderline High: 150-199 mg/dL High: 200-499 mg/dL Very High: >500 mg/dL Performed By: #### L 3890.6102, L3890.6301, L803.2200 #### [facility] [address] [place], [place], [id number] Prothrombin Time w/INRon - INR Coag (PPP) [Relative time] 1.0 {INR} Normal [facility] Comment on above: Performed By: #### L 300.3900, L503.6550, L3000.0375, L800.1280, L501.9985, L3890.6202, L3100.5450, L803.2200, L503.6030, L3400.0700, L500.4050, L501.5101, L500.4100, L3890.6006, L3100.0460 #### [facility] [address] [place], [place], [id number] PT Coag (PPP) [Time] 13.2 s Normal 11.7-14.9 [facility] Comment on above: Performed By: #### L 300.3900, L503.6550, L3000.0375, L800.1280, L501.9985, L3890.6202, L3100.5450, L803.2200, L503.6030, L3400.0700, L500.4050, L501.5101, L500.4100, L3890.6006, L3100.0460 #### [facility] [address] [place], [address] Gastroenterology Visit Repor ton 11-06-2024 Gastroenterology Visit Report [facility] [address] [place] [address] OFFICE VISIT Date of Service: 11/06/24 MR#: [id number] Acct: [id number] Name: AIDAN CERRATO Rep #: [id number] : 1975 Provider: Dr. Shilo rowland MD Age/Sex: 48/M Location: [facility] [place] Status: Signed Intake Vital Signs 11/06/24 13:32 Height 6 ft 4 in Weight: 284 lb BMI 34.5 BP 129/85 H Blood Pressure Location Lt brachial Position Sitting Pulse 69 Pulse Oximetry (%) 97 Oxygen Delivery Method room air Intake Visit Reasons: ELEVATED LIVER ENZYMES Allergies No Known Allergies Allergy (Verified 10/16/24 10:15) Medications ???Medication ???Instructions ???Recorded ???Confirmed ???Type bupropion HCl 150 mg 24 hr tablet, 150 mg PO BID 10/16/24 10/16/24 History extended release (Wellbutrin XL) sildenafil 100 mg tablet (Viagra) 100 mg PO QDAY PRN 10/16/2410/16 History PFSH Medical History Erectile dysfunction Low HDL (under 40) Fatigue Obesity, 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 PCP referred for elevated liver enzymes. US abd/ elastography 10.06.24- Liver measures 20.2cm, Stiffness 10 kPa 5.20.25 Fib-4 2.40 Patient denies any specific symptoms related to abdominal pain/pressure, jaundice, pruritus, fatigue, GI bleed or alteration in bowel habit. No dysuria. Social history: Alcohol: Patient used to drink beer 2-4 beers about 4 nights per week. He quit about a month ago. Nicotine: Patient used to smoke a pack per day quit about 15???16 years ago. Currently chews tobacco. No prior history of substance use/IVDA. Denies history of viral hepatitis ROS Const Constitutional: No fatigue, fever(s), weakness or weight change ENT ENT: No difficulty swallowing Resp Respiratory: No shortness of breath or wheezing Cardio Cardiology: No chest pain at rest or dyspnea on exertion Gastro GI: No abdominal pain, belching, bloating, change in bowel habits, change in stool character, coffee ground emesis, constipation, cramping, diarrhea, heartburn, difficulty swallowing, feeling full early, excessive flatus, incontinent of stools, Vomiting blood/hematemesis, Blood in stool, loose stools, Black,tarry stools, nausea/dyspepsia, pain with swallowing, vomiting or other Genitourinary Male: No difficulty urinating or burning urination Musc Musculoskeletal: No joint pain Skin Skin: No yellowing of the eye or itchy eyes Neuro Neurology: No abnormal movements, behavioral changes, weakness or lack of coordination Psych Psychiatric: No anxiety, No behavioral changes and No depression Endo Endocrine: No fatigue or weight change Aller/Imm Allergy/Immunologic: No itchy eyes or wheezing Fritz/Lymp Hematologic/Lymphatic : No easy bleeding or easy bruising Exam Const General: cooperative, no acute distress and well developed Nutritional Appearance: average body habitus and obese Orientation: alert, awake and oriented x3 Other: BMI 34.5 KG per square meter, 128 kg, obesity grade 1 HENMT Head: normocephalic and atraumatic Nose: external nose normal Face and sinus: normal facial exam Mouth: moist mucous membranes Eyes Pupils: PERRL EOM: EOM intact bilaterally Neck Neck: normal visual inspection, no meningeal signs and trachea midline Carotids: no bruits Chest Chest palpation inspection: normal inspection of the chest Resp Effort Inspection: normal respiratory effort and symmetric chest movement Auscultation: Bilateral: Clear to Auscultation Cardio Palpation: normal PMI Rate: regular rate Rhythm: regular rhythm Heart Sounds: S1 normal and S2 normal GI Auscultation: normal bowel sounds Percussion: normal to percussion Palpation: soft, no hepatosplenomegaly and no guarding Other: Liver edge palpable at the right subcostal margin. Liver dullness to start at fifth ICS at midclavicular line. Spleen not enlarged General: bimanual renal exam normal bilaterally, bladder normal to inspection and bladder normal to palpation Musc Musculoskeletal: No joint tenderness, joint redness, joint warmth or decreased range of motion Thoracic/Lumbar Spine: thor and lumb spine abnorm to inspection Skin General: rashes and/or lesions (more content not included)... Normal [facility] ABD Limited w/ Elastographyo n 10-06-2024 ABD Limited w/ Elastography [facility] [address] [place] [address] ABD Limited w/ Elastography MR#: [id number] Acct: [id number] Name: AIDAN CERRATO Rep #: [id number] : 1975 M 48 From: Jeremy siddiqui MD PCP: Dr. Chilo Carpio MD Status: REG CLI Study: ABD Limited w/ Elastography Date of Exam: 09/27 Exam# [id number] Ordering Dr: Adeline Sanchez MD PROCEDURE: ABD LIMITED W/ ELASTOGRAPHY REASON FOR EXAM: ELEVATED LIVER ENZYMES COMPARISON: None. TECHNIQUE: Right upper quadrant abdominal ultrasound. [facility] ElastQ Imaging shear wave elastography for non- invasive assessment of liver tissue stiffness. Him[facility]hu EPIQ Elite. FINDINGS: LIVER: Size: Enlarged (hepatomegaly) Length: 20.2 cm Echotexture: Diffusely echogenic suggesting fatty infiltration Contour: Normal Lesions: None identified Elastography: EQI Med: 10 kPa EQI Med Job: 1.6 m/s IQR/Med: 12.6 %* GALLBLADDER: Normal COMMON BILE DUCT: Normal measuring 5.3 mm . PANCREAS: Obscured by bowel gas. Visualized portions of the right kidney are unremarkable. No right upper quadrant ascites. US/ABD Limited w/ Elastography IMPRESSION: MODERATE HEPATIC FIBROSIS Hepatomegaly and diffuse fatty infiltration of the liver. Reference Values: SRU <1.37 m/s (5.7kPa): No to mild fibrosis 1.37 m/s - 2.2 m/s: Moderate to severe fibrosis >2.2 m/s (15kPa): Significant fibrosis / cirrhosis METAVIR Score F2 or higher: 1.34 m/s (5.7kPa) F3 or higher: 1.55 m/s (7.3kPa) F4: 1.80 m/s (10kPa) * If the IQR/Med is >30%, the variance in the measurements is a large and the accuracy of the measurement may be in question. Reading Location: [place] [address] CC: Dr. Adeline Sanchez MD; Dr. 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, [address] TESTOSTER,TOTAL 386 ng/dL Normal 264-916 [facility] Comment on above: Order Comment: Order Date: 08/06/24 Order Info: 0024-1 - TESTF N Result Comment: Adul t male reference interval is based on a population of healthy nonobese males (BMI <30) between 19 and 39 years old. Sarah et.al. JCEM 2017,102;4680-1518. PMID: [id number]. Performed By: #### L 3100.5310, L500.4050, L501.9520, L100.0100 #### [facility] [address] [place], [address] TESTOSTERONE,%F 1.98 Normal 1.50-4.20 [facility] Comment on above: Order Comment: Order Date: 08/06/24 Order Info: 0024-1 - TESTF N Result Comment: Perf ormed at: - [facility] [address] [id number] Body Designer: Pierre Castro PhD, Phone: [phone] Performed at: - [facility] [address] [id number] Body Designer: Mitesh Lion MD, Phone: [phone] Performed By: #### L 3100.5310, L500.4050, L501.9520, L100.0100 #### [facility] [address] [place], [place], [id number] Anti-Smooth Muscle ABSon ANTISMOOTH MUSC 6 Units Normal 0-19 [facility] Comment on above: Order Comment: Order Date: 09/16/24 Order Info: [id number] - HEAT Order Info: [id number] - CELAB Result Comment: Nega tive 0 - 19 Weak positive 20 - 30 Moderate to strong positive >30 Actin Antibodies are found in 52-85% of patients with autoimmune hepatitis or chronic active hepatitis and in 22% of patients with primary biliary cirrhosis. Performed By: #### L 3890.6102, L3890.6301, L803.2200 #### [facility] [address] [place], [place], [id number] Celiac AB,Comprehensiveon ANTIGLIADIN IGA 4 units Normal 0-19 [facility] Comment on above: Order Comment: Order Date: 09/16/24 Order Info: [id number] - CRP Result Comment: Nega tive 0 - 19 Weak Positive 20 - 30 Moderate to Strong Positive >30 Performed By: #### L 3890.6102, L3890.6301, L803.2200 #### [facility] [address] [place], [place], [id number] ANTIGLIADIN IGG 2 units Normal 0-19 [facility] Comment on above: Order Comment: Order Date: 09/16/24 Order Info: [id number] - CRP Result Comment: Nega tive 0 - 19 Weak Positive 20 - 30 Moderate to Strong Positive >30 Performed By: #### L 3890.6102, L3890.6301, L803.2200 #### [facility] [address] [place], [address] ENDOMYSIAL IGA Negative Normal Negative [facility] Comment on above: Order Comment: Order Date: 09/16/24 Order Info: [id number] - CRP Performed By: #### L 3890.6102, L3890.6301, L803.2200 #### [facility] [address] [place], [place], [id number] IMMUNOGLOB A QN 194 mg/dL Normal 90-386 [facility] Comment on above: Order Comment: Order Date: 09/16/24 Order Info: [id number] - CRP Performed By: #### L 3890.6102, L3890.6301, L803.2200 #### [facility] [address] [place], [address] tTG IGA <2 Normal 0-3 [facility] Comment on above: Order Comment: Order Date: 09/16/24 Order Info: [id number] - CRP Result Comment: Nega tive 0 - 3 Weak Positive 4 - 10 Positive >10 Tissue Transglutaminase (tTG) has been identified as the endomysial antigen. Studies have demonstr- ated that endomysial IgA antibodies have over 99% specificity for gluten sensitive enteropathy. Performed By: #### L 3890.6102, L3890.6301, L803.2200 #### [facility] [address] [place], [address] tTG IGG <2 Normal 0-5 [facility] Comment on above: Order Comment: Order Date: 09/16/24 Order Info: [id number] - CRP Result Comment: Nega tive 0 - 5 Weak Positive 6 - 9 Positive >9 Performed By: #### L 3890.6102, L3890.6301, L803.2200 #### [facility] [address] [facility] [place], [place], [id number] Hepatitis A AB, Totalon 08-28 HEPATITIS A,TOT Negative Normal Negative [facility] Comment on above: Order Comment: Order Date: 09/16/24 Order Info: [id number] - CRP Result Comment: Comm ent: The HAV total antibody assay detects both IgG and IgM but does not differentiate between them. A negative result suggests susceptibility to infection. A positive result could be due to vaccination, previously resolved infection or active infection. Testing for HAV IgM should be performed if active HAV infection is suspected. [facility] offers profiles that will automatically reflex positive HAV total antibody results to IgM (e.g., panel #[id number] HAV Antibody w/ Rfx). Performed at: [address] [id number] Body Designer: Pierre Castro PhD, Phone: [phone] Performed By: #### L 3890.6102, L3890.630, [id number] #### [facility] [address] [facility] [place], [place], [id number] CRPon 09-17-2024 C-REACTIVE PROT < 3.00 Normal 0.0-3.0 [facility] Comment on above: Order Comment: Order Date: 09/16/24 Order Info: [id number] - CRP Performed By: #### L 3890.6102, L3890.630, [id number] #### [facility] [address] [facility]. [place], [place], [address] Hepatitis C Antibodyon 09-17 Hepatitis C Ab Non-Reactive Normal Nonreactive [facility] Comment on above: Order Comment: Order Date: 09/16/24 Order Info: [id number] - CRP Result Comment: Reac tive: Presumptive evidence of antibodies to HCV. Follow CDC recommendations for supplemental testing. Non-Reactive: Antibodies to HCV were not detected; does not exclude the possibility of exposure to HCV Reactive Results are presumptive evidence of antibodies to HCV. Follow CDC recommendations for supplemental testing. Order confirmation testing: HCV Quant by PCR testing - HCVPCR #[id number] Non Reactive: < 0.8 Equivocal: >/= 0.8 to < 1.0 Reactive: >/= 1.0 The [facility] requires that a reactive/equivocal HCV antibody result be sent out for confirmation. HCV Quant by PCR testing. Performed By: #### L 3890.6102, L3890.6301, L803.2200 #### [facility] [address] [place], [address] L3890.6102on 09-17-2024 HEP B Surf Ag Non-Reactive Normal Nonreactive [facility] Comment on above: Order Comment: Order Date: 09/16/24 Order Info: [id number] - CRP Result Comment: Reac tive: Presumptive evidence of HBV. Repeatedly reactive samples must be confirmed using a neutralization test ([employer] HBsAg Confirmatory Test) Non-Reactive: HBsAg not detected; does not exclude the possibility of exposure to HBV Performed By: #### L 3890.6102, L3890.6301, L803.2200 #### [facility] [address] [place], [address] Laboratory - Microbiology an d Antimicrobial susceptibilityOrdered By: Chilo Carpio on 09-16-2024 HBV surface Ag Ql (S) Non-Reactive Nonreactive [facility] Comment on above: Reactive: Presumptiv e evidence of HBV. Repeatedly reactive samples must be confirmed using a neutralization test ([employer] HBsAg Confirmatory Test)Non-Reactive: HBsAg not detected; does not exclude the possibility of exposure to HBV No Panel InformationOrdered By: Chilo Carpio on 09-16-2024 Tissue Transglutaminase IgG Ab <2 U/mL 0-5 [facility] Comment on above: Negative 0 - 5 Weak Positive 6 - 9 Positive >9 Serum or plasma C reactive p rotein measurement (mass/volume)Ordered By: Chilo Carpio on 09-16-2024 CRP [Mass/Vol] mg/L 0.0-3.0 [facility] Serum or plasma actin IgG an tibody assay (units/volume)Ordered By: Chilo Carpio on 09-16-2024 Actin IgG Qn 6 Units 0-19 [facility] Comment on above: Negative 0 - 19 Weak positive 20 - 30 Moderate to strong positive >30 Actin Antibodies are found in 52-85% of patients with autoimmune hepatitis or chronic active hepatitis and in 22% of patients with primary biliary cirrhosis. Serum tissue transglutaminas e (tTG) IgA antibody assay (units/volume)Ordered By: Chilo Carpio on 09-16-2024 tTG IgA Qn (S) <2 U/mL 0-3 [facility] Comment on above: Negative 0 - 3 Weak Positive 4 - 10 Positive >10 Tissue Transglutaminase (tTG) has been identified as the endomysial antigen. Studies have demonstr- ated that endomysial IgA antibodies have over 99% specificity for gluten sensitive enteropathy. Absolute lymphocyte countOrd ered By: Chilo Carpio on 09-15-2024 Lymphocytes Auto (Unsp spec) [#/Vol] 1.27 10*3/uL 0.83-4.51 [facility] Absolute neutrophil countOrd ered By: Chilo Carpio on 09-15-2024 Neutrophils (Bld) [#/Vol] 4.8 10*3/uL 2.0-7.7 [facility] Anion gap in Serum or Plasma Ordered By: Chilo Carpio on 09-15-2024 Anion gap [Moles/Vol] 11 mmol/L 5- [facility] Automated lymphocyte count a s percentage of total leukocytesOrdered By: Chilo Carpio on 09-15-2024 Lymphocytes/100 WBC Auto (Unsp spec) 18.1 % Low 19-41 [facility] BUN/creatinine ratioOrdered By: Chilo Carpio on 09-15-2024 Urea nitrogen/Creatinine [Mass ratio] 13.6 mg/mg - [facility] Basophil percentageOrdered B y: Chilo Carpio on 09-15-2024 Basophils/100 WBC (Bld) 0.3 % 0-1 [facility] Bilirubin, totalOrdered By: Chilo Carpio on 09-15-2024 Bilirubin [Mass/Vol] 0.55 mg/dL 0.00-1.30 [facility] CBC W/Diff, Automatedon 08-28 Absolute Lymph 1.27 X10 3/uL Normal 0.83-4.51 [facility] Comment on above: Order Comment: Order Date: 08/06/24 Order Info: 0184-1 - CBCD Performed By: #### L 3100.5310, L500.4050, L501.9520, L100.0100 #### [facility] [address] [place], [address] Absolute Neut 4.8 X10 3/uL Normal 2.0-7.7 [facility] Comment on above: Order Comment: Order Date: 08/06/24 Order Info: 0184-1 - CBCD Performed By: #### L 3100.5310, L500.4050, L501.9520, L100.0100 #### [facility] [address] [place], [address] Basophils/100 WBC (Bld) 0.3 % Normal 0-1 [facility] Comment on above: Order Comment: Order Date: 08/06/24 Order Info: 0184-1 - CBCD Performed By: #### L 3100.5310, L500.4050, L501.9520, L100.0100 #### [facility] [address] [place], [address] Eosinophils/100 WBC (Bld) 2.6 % Normal 0-5 [facility] Comment on above: Order Comment: Order Date: 08/06/24 Order Info: 0184-1 - CBCD Performed By: #### L 3100.5310, L500.4050, L501.9520, L100.0100 #### [facility] [address] [place], [address] Erythrocyte distribution width (RBC) [Ratio] 12.3 % Normal 11.6-14.6 [facility] Comment on above: Order Comment: Order Date: 08/06/24 Order Info: 0184-1 - CBCD Performed By: #### L 3100.5310, L500.4050, L501.9520, L100.0100 #### [facility] [address] [place], [address] Hematocrit (Bld) [Volume fraction] 42.2 % Normal 40-54 [facility] Comment on above: Order Comment: Order Date: 08/06/24 Order Info: 0184-1 - CBCD Performed By: #### L 3100.5310, L500.4050, L501.9520, L100.0100 #### [facility] [address] [place], [address] Hemoglobin (Bld) [Mass/Vol] 15.1 g/dL Normal 13.0-16.5 [facility] Comment on above: Order Comment: Order Date: 08/06/24 Order Info: 0184-1 - CBCD Performed By: #### L 3100.5310, L500.4050, L501.9520, L100.0100 #### [facility] [address] [place], [address] IG% 0.300 Normal 0.0-0.9 [facility] Comment on above: Order Comment: Order Date: 08/06/24 Order Info: 0184-1 - CBCD Result Comment: IG% - Immature Granulocytes (promyelocytes, myelocytes and metamyelocytes) > 1% indicates that a LEFT SHIFT is Present. Performed By: #### L 3100.5310, L500.4050, L501.9520, L100.0100 #### [facility] [address] [place], [address] Lymphocytes/100 WBC (Bld) 18.1 % Low 19-41 [facility] Comment on above: Order Comment: Order Date: 08/06/24 Order Info: 0184-1 - CBCD Performed By: #### L 3100.5310, L500.4050, L501.9520, L100.0100 #### [facility] [address] [place], [address] MCH (RBC) [Entitic mass] 32.1 pg High 27.0-32.0 [facility] Comment on above: Order Comment: Order Date: 08/06/24 Order Info: 0184-1 - CBCD Performed By: #### L 3100.5310, L500.4050, L501.9520, L100.0100 #### [facility] [address] [place], [address] MCHC (RBC) [Mass/Vol] 35.8 g/dL Normal 32-36 [facility] Comment on above: Order Comment: Order Date: 08/06/24 Order Info: 0184-1 - CBCD Performed By: #### L 3100.5310, L500.4050, L501.9520, L100.0100 #### [facility] [address] [place], [address] MCV (RBC) [Entitic vol] 89.6 fL Normal 80-94 [facility] Comment on above: Order Comment: Order Date: 08/06/24 Order Info: 0184-1 - CBCD Performed By: #### L 3100.5310, L500.4050, L501.9520, L100.0100 #### [facility] [address] [place], [address] Monocytes/100 WBC (Bld) 10.7 % High 0-10 [facility] Comment on above: Order Comment: Order Date: 08/06/24 Order Info: 0184-1 - CBCD Performed By: #### L 3100.5310, L500.4050, L501.9520, L100.0100 #### [facility] [address] [place], [address] Neutrophils/100 WBC (Bld) 68.0 % Normal 47-70 [facility] Comment on above: Order Comment: Order Date: 08/06/24 Order Info: 0184-1 - CBCD Performed By: #### L 3100.5310, L500.4050, L501.9520, L100.0100 #### [facility] [address] [place], [address] Nucleated RBC (Bld) [#/Vol] 0 10*3/uL Normal 0-5 [facility] Comment on above: Order Comment: Order Date: 08/06/24 Order Info: 0184-1 - CBCD Performed By: #### L 3100.5310, L500.4050, L501.9520, L100.0100 #### [facility] [address] [place], [address] Platelet mean volume (Bld) [Entitic vol] 11.5 fL Normal 6.2-12.0 [facility] Comment on above: Order Comment: Order Date: 08/06/24 Order Info: 0184- - CBCD Performed By: #### L 3100.5310, L500.4050, L501.9520, L100.0100 #### [facility] [address] [place], [address] Platelets (Bld) [#/Vol] 206 10*3/uL Normal 150-450 [facility] Comment on above: Order Comment: Order Date: 08/06/24 Order Info: 0184- - CBCD Performed By: #### L 3100.5310, L500.4050, L501.9520, L100.0100 #### [facility] [address] [place], [address] RBC (Bld) [#/Vol] 4.71 10*6/uL Normal 4.6-6.2 [facility] Comment on above: Order Comment: Order Date: 08/06/24 Order Info: 0184-1 - CBCD Performed By: #### L 3100.5310, L500.4050, L501.9520, L100.0100 #### [facility] [address] [place], [address] RDW SD 40.3 fl Normal 35.1-43.9 [facility] Comment on above: Order Comment: Order Date: 08/06/24 Order Info: 0184-1 - CBCD Performed By: #### L 3100.5310, L500.4050, L501.9520, L100.0100 #### [facility] [address] [place], [address] WBC (Bld) [#/Vol] 7.0 10*3/uL Normal 4.4-11.0 [facility] Comment on above: Order Comment: Order Date: 08/06/24 Order Info: 0184- - CBCD Performed By: #### L 3100.5310, L500.4050, L501.9520, L100.0100 #### [facility] [address] [place], [address] Carbon dioxide, total [Moles /volume] in Central venous bloodOrdered By: Chilo Carpio on 09-15-2024 CO2 [Moles/Vol] 22.7 mmol/L 21.0-32.0 [facility] Chloride assayOrdered By: Vidal Carpio on 09-15-2024 Chloride [Moles/Vol] 106 mmol/L 98-108 [facility] Comprehensive Metabolic Prof ilon 09-15-2024 Albumin [Mass/Vol] 4.5 g/dL Normal 3.5-5.0 [facility] Comment on above: Order Comment: Order Date: 08/06/24 Order Info: 0786-1 - CMP Order Info: [id number] - TSH Performed By: #### L 3100.5310, L500.4050, L501.9520, L100.0100 #### [facility] [address] [place], [address] Albumin/Globulin [Mass ratio] 1.7 {ratio} Normal 0.9-2.4 [facility] Comment on above: Order Comment: Order Date: 08/06/24 Order Info: 0786-1 - CMP Order Info: [id number] - TSH Performed By: #### L 3100.5310, L500.4050, L501.9520, L100.0100 #### [facility] [address] [place], [address] ALK PHOS 75 U/L Normal 40-129 [facility] Comment on above: Order Comment: Order Date: 08/06/24 Order Info: 0786- - CMP Order Info: 3 - TSH Performed By: #### L 3100.5310, L500.4050, L501.9520, L100.0100 #### [facility] [address] [place], [address] ALT [Catalytic activity/Vol] 54 U/L High <=46 [facility] Comment on above: Order Comment: Order Date: 08/06/24 Order Info: 07 - CMP Order Info: 3015-06 - TSH Performed By: #### L 3100.5310, L500.4050, L501.9520, L100.0100 #### [facility] [address] [place], [address] AST [Catalytic activity/Vol] 79 U/L High <=37 [facility] Comment on above: Order Comment: Order Date: 08/06/24 Order Info: 0786- - CMP Order Info: 3015-06 - TSH Performed By: #### L 3100.5310, L500.4050, L501.9520, L100.0100 #### [facility] [address] [place], [address] Bilirubin [Mass/Vol] 0.55 mg/dL Normal 0.00-1.30 [facility] Comment on above: Order Comment: Order Date: 08/06/24 Order Info: 0786- - CMP Order Info: 3015-06 - TSH Performed By: #### L 3100.5310, L500.4050, L501.9520, L100.0100 #### [facility] [address] [place], [address] BUN/CRE 13.6 RATIO Normal 10-20 [facility] Comment on above: Order Comment: Order Date: 08/06/24 Order Info: 0786-1 - CMP Order Info: 301-3 - TSH Performed By: #### L 3100.5310, L500.4050, L501.9520, L100.0100 #### [facility] [address] [place], [address] Calcium [Mass/Vol] 9.4 mg/dL Normal 7.6-11.0 [facility] Comment on above: Order Comment: Order Date: 08/06/24 Order Info: 0786-1 - CMP Order Info: 3013 - TSH Performed By: #### L 3100.5310, L500.4050, L501.9520, L100.0100 #### [facility] [address] [place], [address] Chloride [Moles/Vol] 106 mmol/L Normal 98-108 [facility] Comment on above: Order Comment: Order Date: 08/06/24 Order Info: 0786-1 - CMP Order Info: [id number] - TSH Performed By: #### L 3100.5310, L500.4050, L501.9520, L100.0100 #### [facility] [address] [place], [address] CO2 [Moles/Vol] 22.7 mmol/L Normal 21.0-32.0 [facility] Comment on above: Order Comment: Order Date: 08/06/24 Order Info: 0786-1 - CMP Order Info: 3016-3 - TSH Performed By: #### L 3100.5310, L500.4050, L501.9520, L100.0100 #### [facility] [address] [place], [address] Creatinine [Mass/Vol] 1.16 mg/dL Normal 0.70-1.20 [facility] Comment on above: Order Comment: Order Date: 08/06/24 Order Info: 0786-1 - CMP Order Info: 3015-06 - TSH Performed By: #### L 3100.5310, L500.4050, L501.9520, L100.0100 #### [facility] [address] [place], [address] GAP 11 Normal 5-15 [facility] Comment on above: Order Comment: Order Date: 08/06/24 Order Info: 0786- - CMP Order Info: 3015-06 - TSH Performed By: #### L 3100.5310, L500.4050, L501.9520, L100.0100 #### [facility] [address] [place], [address] GFR/1.73 sq M.predicted among non-blacks MDRD (S/P/Bld) [Vol rate/Area] 79 mL/min/{1.73_m2} Normal >60 [facility] Comment on above: Order Comment: Order Date: 08/06/24 Order Info: 0786- - CMP Order Info: 3015-06 - TSH Result Comment: mL/m in/1.73m2 CKD-EPI Creatinine Equation (2020) Performed By: #### L 3100.5310, L500.4050, L501.9520, L100.0100 #### [facility] [address] [place], [address] Globulin (S) [Mass/Vol] 2.7 g/dL Normal 2.2-4.2 [facility] Comment on above: Order Comment: Order Date: 08/06/24 Order Info: 0786-1 - CMP Order Info: 3015-06 - TSH Performed By: #### L 3100.5310, L500.4050, L501.9520, L100.0100 #### [facility] [address] [place], [address] Glucose [Mass/Vol] 105 mg/dL High 70-99 [facility] Comment on above: Order Comment: Order Date: 08/06/24 Order Info: 0786-1 - CMP Order Info: 3015-3 - TSH Performed By: #### L 3100.5310, L500.4050, L501.9520, L100.0100 #### [facility] [address] [place], [address] Potassium [Moles/Vol] 3.7 mmol/L Normal 3.3-5.1 [facility] Comment on above: Order Comment: Order Date: 08/06/24 Order Info: 0786-1 - CMP Order Info: 3 - TSH Performed By: #### L 3100.5310, L500.4050, L501.9520, L100.0100 #### [facility] [address] [place], [address] Sodium [Moles/Vol] 139 mmol/L Normal 133-145 [facility] Comment on above: Order Comment: Order Date: 08/06/24 Order Info: 0786- - CMP Order Info: 3015-3 - TSH Performed By: #### L 3100.5310, L500.4050, L501.9520, L100.0100 #### [facility] [address] [place], [address] T PROT 7.1 g/dL Normal 5.9-8.4 [facility] Comment on above: Order Comment: Order Date: 08/06/24 Order Info: 0786-1 - CMP Order Info: 3 - TSH Performed By: #### L 3100.5310, L500.4050, L501.9520, L100.0100 #### [facility] [address] [place], [address] Urea nitrogen [Mass/Vol] 16 mg/dL Normal 4-19 [facility] Comment on above: Order Comment: Order Date: 08/06/24 Order Info: 0786-1 - CMP Order Info: 301-3 - TSH Performed By: #### L 3100.5310, L500.4050, L501.9520, L100.0100 #### [facility] [place], [address] Eosinophil percentageOrdered By: Chilo Carpio on 09-15-2024 Eosinophils/100 WBC (Bld) 2.6 % 0-5 [facility] Erythrocyte distribution wid th ratioOrdered By: Chilo Carpio on 09-15-2024 Erythrocyte distribution width (RBC) [Ratio] 12.3 % 11.6-14.6 [facility] Erythrocyte distribution wid th standard deviationOrdered By: Chilo Carpio on 09-15-2024 Erythrocyte distribution width (RBC) [Ratio] 40.3 fl 35.1-43.9 [facility] Free testosterone percentage Ordered By: Chilo Carpio on 09-15-2024 Testosterone Free/Testosterone.total [Mass fraction] 1.98 % 1.50-4.20 [facility] Comment on above: Performed at: [address] [id number] Director: Pierre Castro PhD, Phone: [phone] at: [facility] [id number] Director: Mitesh Lion MD, Phone: [phone] Glomerular filtration rate ( GFR) estimation/1.73 sq m using serum, plasma, or whole bOrdered By: Chilo Carpio on 09-15-2024 GFR/1.73 sq M.predicted among non-blacks MDRD (S/P/Bld) [Vol rate/Area] 79 mL/min/{1.73_m2} >60 [facility] Comment on above: mL/min/1.73m2 CKD-EP I Creatinine Equation (2020) Hematocrit Auto (Bld) [Volum e fraction]Ordered By: Chilo Carpio on 09-15-2024 Hematocrit (Bld) [Volume fraction] 42.2 % 40-54 [facility] Hemoglobin measurementOrdere d By: Chilo Carpio on 09-15-2024 Hemoglobin (Bld) [Mass/Vol] 15.1 g/dL 13.0-16.5 [facility] Immature granulocytes/100 WB C Auto (Bld)Ordered By: Chilo Carpio on 09-15-2024 Immature granulocytes/100 WBC (Bld) 0.300 % 0.0-0.9 [facility] Comment on above: IG% - Immature Granu locytes (promyelocytes, myelocytes and metamyelocytes) > 1% indicates that a LEFT SHIFT is Present. Laboratory - Chemistry and C hemistry - challengeOrdered By: Chilo Carpio on 09-15-2024 AST [Catalytic activity/Vol] 79 U/L High <38 [facility] MCV (mean corpuscular volume ) determinationOrdered By: Chilo Carpio on 09-15-2024 MCV (RBC) [Entitic vol] 89.6 fL 80-94 [facility] Mean corpuscular hemoglobin (MCH) determinationOrdered By: Chilo Carpio on 09-15-2024 MCH (RBC) [Entitic mass] 32.1 pg High 27.0-32.0 [facility] Mean corpuscular hemoglobin concentration (MCHC) determinationOrdered By: Chilo Carpio on 09-15-2024 MCHC (RBC) [Mass/Vol] 35.8 g/dL 32-36 [facility] Mean platelet volume determi nationOrdered By: Chilo Carpio on 09-15-2024 Platelet mean volume (Bld) [Entitic vol] 11.5 fL 6.2-12.0 [facility] Monocyte percentageOrdered B y: Chilo Carpio on 09-15-2024 Monocytes/100 WBC (Bld) 10.7 % High 0-10 [facility] Neutrophil percentageOrdered By: Chilo Carpio on 09-15-2024 Neutrophils/100 WBC (Bld) 68.0 % 47-70 [facility] Nucleated red blood cell per centageOrdered By: Chilo Carpio on 09-15-2024 Nucleated RBC/100 WBC (Bld) [Ratio] 0 % 0-5 [facility] Platelet countOrdered By: Vidal Carpio on 09-15-2024 Platelets (Bld) [#/Vol] 206 10*3/uL 150-450 [facility] Potassium measurement (mass/ volume)Ordered By: Chilo Carpio on 09-15-2024 Potassium (Unsp spec) [Mass/Vol] 3.7 mmol/L 3.3-5.1 [facility] RBC Auto (Bld) [#/Vol]Ordere d By: Chilo Carpio on 09-15-2024 RBC (Bld) [#/Vol] 4.71 10*6/uL 4.6-6.2 [facility] Serum creatinine measurement (mass/volume)Ordered By: Chilo Carpio on 09-15-2024 Creatinine [Mass/Vol] 1.16 mg/dL 0.70-1.20 [facility] Serum globulin measurementOr dered By: Chilo Carpio on 09-15-2024 Globulin (S) [Mass/Vol] 2.7 g/dL 2.2-4.2 [facility] Serum glucose measurement (m ass/volume)Ordered By: Chilo Carpio on 09-15-2024 Glucose [Mass/Vol] 105 mg/dL High 70-99 [facility] Serum or plasma alanine garcia otransferase (ALT) measurementOrdered By: Chilo Carpio on 09-15-2024 ALT [Catalytic activity/Vol] 54 U/L High <47 [facility] Serum or plasma albumin luis urement (mass/volume)Ordered By: Chilo Carpio on 09-15-2024 Albumin [Mass/Vol] 4.5 g/dL 3.5-5.0 [facility] Serum or plasma albumin/glob ulin mass ratioOrdered By: Chilo Carpio on 09-15-2024 Albumin/Globulin [Mass ratio] 1.7 {ratio} 0.9-2.4 [facility] Serum or plasma alkaline reji sphatase measurementOrdered By: Chilo Carpio on 09-15-2024 ALP [Catalytic activity/Vol] 75 U/L 40-129 [facility] Serum or plasma calcium luis urement (mass/volume)Ordered By: Chilo Carpio on 09-15-2024 Calcium [Mass/Vol] 9.4 mg/dL 7.6-11.0 [facility] Serum or plasma free testost erone measurement (mass/volume)Ordered By: Chilo Carpio on 09-15-2024 Testosterone Free [Mass/Vol] 7.64 ng/dL 5.00-21.00 [facility] Serum or plasma urea nitroge n measurement (mass/volume)Ordered By: Chilo Carpio on 09-15-2024 Urea nitrogen [Mass/Vol] 16 mg/dL 4-19 [facility] Sodium levelOrdered By: Chilo Carpio on 09-15-2024 Sodium [Moles/Vol] 139 mmol/L 133-145 [facility] TSH DL <= 0.005 mIU/L QnOrde red By: Chilo Carpio on 09-15-2024 TSH Qn 2.750 uIU/mL 0.300-4.200 [facility] Testosterone, totalOrdered B y: Chilo Carpio on 09-15-2024 Testosterone [Mass/Vol] 386 ng/dL 264-916 [facility] Comment on above: Adult male reference interval is based on a population ofhealthy nonobese males (BMI <30) between 19 and 39 yearsold. jose alberto Smith.al. JCEM 2017,102;0672-5023. PMID:[id number]. Thyroid Stim Hormone (TSH)on 09-15-2024 TSH 2.750 uIU/mL Normal 0.300-4.200 [facility] Comment on above: Order Comment: Order Date: 08/06/24 Order Info: 0786-1 - CMP Order Info: 3016-3 - TSH Performed By: #### L 3100.5310, L500.4050, L501.9520, L100.0100 #### [facility] [address] [place], [place], [id number] Total proteinOrdered By: Angélica Carpio on 09-15-2024 Protein [Mass/Vol] 7.1 g/dL 5.9-8.4 [facility] White blood cell (WBC) count Ordered By: Chilo Carpio on 09-15-2024 WBC (Bld) [#/Vol] 7.0 10*3/uL 4.4-11.0 [facility] Vital Signs Date Time Vital Sign Value Performing Clinician Lo watt 11-06-2024 13:32-0400 Body height 193.[address] Chilo Carpio MD Work Phone: [facility] 11-06-2024 13:32-0400 Body mass index (BMI) [Ratio] 34.5 kg/m2 Dr. Cihlo Carpio MD Work Phone: [facility] 11-06-2024 13:32-0400 Body weight 128.[address] Chilo Carpio MD Work Phone: [facility] 11-06-2024 13:32-0400 Diastolic blood pressure 85 mm[Hg] Dr. Chilo Carpio MD Work Phone: [facility] 11-06-2024 13:32-0400 Heart rate 69 /min Dr. Chilo Carpio MD Work Phone: [facility] 11-06-2024 13:32-0400 SaO2% (BldA) [Mass fraction] 97 % Dr. Chilo Carpio MD Work Phone: [facility] 11-06-2024 13:32-0400 Systolic blood pressure 129 mm[Hg] Dr. Chilo Carpio MD Work Phone: [facility] Encounters Encounter Date Encounter Type Care Provider Facility Start: 02-10-2025 ambulatory Chilo Carpio Facility:[facility] Start: 11-06-2024 End: 11-06-[address] Shilo Antunez MD -[facility] Work Phone: Start: 11-06-2024 End: 11-06-[address] Chilo Carpio MD Work Phone: [facility] Start: 10-06-2024 End: 10-06-[address] Chilo Carpio MD Work Phone: [facility] Work Phone: Start: 10-06-2024 End: 10-06-[address] Chilo Carpio MD -Ultras[facility] Work Phone: Start: 10-06-2024 End: 10-06-2024 ambulatory Chilo Carpio Facility:[facility] Start: 09-16-2024 End: 09-16-[address] Chilo Carpio MD Work Phone: [facility] Work Phone: Start: 09-16-2024 End: 09-16-[address] Chilo Carpio MD -[facility] Start: 09-15-2024 End: 09-16-[address] Chilo Carpio MD Work Phone: [facility] Work Phone: Start: 09-15-2024 End: 09-15-[address] Chilo Carpio MD -[facility] Start: 09-15-2024 End: 09-15-2024 ambulatory Chilo Carpio Facility:[facility] Procedures Date Procedure Procedure Detail Performing Clinician Start: 10-06-2024 Ultrasound elastogra phy of liver Dr. Chilo Carpio MD Work Phone: Start: 09-16-[address] IgA level [address] [...] HAVtotal antibody results to IgM (e.g., panel #808671 HAVAntibody w/ Rfx).Performed at: [address] [id number] Director: Pierre Castro PhD, Phone: [phone] Start: 09-16-2024 Hepatitis C antibody measurement Dr. [...] HCV Quant by PCR testing - HCVPCR #[id number] Non Reactive: < 0.8 Equivocal: >/= 0.8 to < 1.0 Reactive: >/= 1.0The CDC requires that a reactive/equivocal HCV antibody result be sent out for confirmation. HCV Quant by PCR testing. Start: 09-16-2024 Measurement of immun oglobulin A in serum specimen Dr. Chilo Carpio MD Work Phone: Plan of Treatment Date Care Activity Detail Author Serum testosterone measurement [facility] Testosterone Free [M ass/volume] in Serum or Plasma [facility] Testosterone measurement [facility] Payers Date Payer Category Payer Private Health Insurance [id number] 2024 Self-pay Private Health Insurance [id number] Unknown [id number] Unknown [id number] 2.16.8 [id number] Unknown [id number] 2.16.8 [id number] Unknown [id number] 2.16.8 [id number] Unknown [id number] 2.16.8 [id number] Unknown [id number] 2.16.8 [id number] Social History Date Type Detail Facility Start: 12-03-2013 End: 10-09-2024 Tobacco smoking status NJIS Smokes tobacco daily (finding) [facility] Start: 1975 Sex Assigned At Male [facility] Start: 10-16-2024 Tobacco smoking stat us NHIS Ex-smoker (finding) [facility] Radiology Diagnostic study note 10-06-2024 Note Date & Type Note Facility 10-06-2024 Radiology Diagnostic study note [facility] Imaging Services [address] [place] [address] ABD Limited w/ Elastography MR#: [id number] Acct: [id number] Name: AIDAN CERRATO Rep #: [id number] 4 : 1975 M 48 From: Keenan Contreras MD PCP: Dr. Chilo Carpio MD Status: REG CLI Study:ABD Limited w/ Elastography Date of Exa m: 10/06/24 Exam# [id number] Ordering Dr: Stacy Sanchez MD PROCEDURE: ABD LIMITED W/ ELASTOGRAPHY REASON FOR EXAM: ELEVATED LIVER ENZYMES COMPARISON: None. TECHNIQUE: Right upper quadrant abdominal ultrasound. Himanshu ElastQ Imaging shear wave elastography for non-invasive assessment of liver tissue stiffness. Himanshu EPIQ Elite. FINDINGS: LIVER: Size: Enlarged (hepatomegaly) Length: 20.2 cm Echotexture: Diffusely echogenic suggesting fatty infiltration Contour: Normal Lesions: None identified Elastography: EQI Med: 10 kPa EQI Med Job: 1.6 m/s IQR/Med: 12.6 %* GALLBLADDER: Normal COMMON BILE DUCT: Normal measuring 5.3 mm . PANCREAS: Obscured by bowel gas. Visualized portions of the right kidney are unremarkable. No right upper quadrant ascites. US/ABD Limited w/ Elastography IMPRESSION: MODERATE HEPATIC FIBROSIS Hepatomegaly and diffuse fatty infiltration of the liver. Reference Values: SRU <1.37 m/s (5.7kPa): No to mild fibrosis 1.37 m/s - 2.2 m/s: Moderate to severe fibrosis >2.2 m/s (15kPa): Significant fibrosis / cirrhosis METAVIR Score F2 or higher: 1.34 m/s (5.7kPa) F3 or higher: 1.55 m/s (7.3kPa) F4: 1.80 m/s (10kPa) * If the IQR/Med is >30%, the variance in the measurements is a large and the accuracy of the measurement may be in question. Reading Location: [place] [address] CC: Dr. Adeline Sanchez MD; Dr. 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 Chilo Carpio MD Primary Care Provider Active Team Status: Inactive Member Role Status Dates Dr. Chilo Carpio MD Primary Care Provider Active Start: October 06, 2024 End: October 06, 2024 Dr. Chilo Carpio MD Attending Provider Active St art: October 06, 2024 End: October 06, 2024 Dr. Chilo Carpio MD Referring Provider Active St art: October 06, 2024 End: October 06, 2024 Team Status: Active Member Role/Relationship Status Dates Dr. Chilo Carpio MD Primary Care Provider Active Team Status: Inactive Member Role/Relationship Status Dates Dr. Chilo Carpio MD Primary Care Provider Active Start: September 15, 2024 End: September 15, 2024 Dr. Chilo Carpio MD Attending Provider Active St art: September 15, 2024 End: September 15, 2024 Dr. Chilo Carpio MD Referring Provider Active St art: September 15, 2024 End: September 15, 2024 Team Status: Inactive Member Role/Relationship Status Dates Dr. Chilo Carpio MD Primary Care Provider Active Start: September 16, 2024 End: September 16, 2024 Dr. Chilo Carpio MD Attending Provider Active St art: September 16, 2024 End: September 16, 2024 Dr. Chilo Carpio MD Referring Provider Active St art: September 16, 2024 End: September 16, 2024 Team Status: Inactive Member Role/Relationship Status Dates Dr. Chilo Carpio MD Primary Care Provider Active Start: October 06, 2024 End: October 06, 2024 Dr. Chilo Carpio MD Attending Provider Active St art: October 06, 2024 End: October 06, 2024 Dr. Chilo Carpio MD Referring Provider Active St art: October 06, 2024 End: October 06, 2024 Team Status: Inactive Member Role/Relationship Status Dates Dr. Chilo Carpio MD Primary Care Provider Active Start: November 06, 2024 End: November 06, 2024 Dr. Chilo Carpio MD Referring Provider Active St art: November 06, 2024 End: November 06, 2024 Dr. Shilo Antunez MD Attending Provider Active Start: November 06, 2024 End: November 06, 2024 Goals (unrecognized section and content) Goals may be documented in a n alternate sectionGoals may be documented in an alternate sectionGoals may be documented in an alternate sectionGoals may be documented in an alternate section (unrecognized sect ion and content) No Status Records Found INFORMATION SOURCE (unrecogn ized section and content) DATE CREATED AUTHOR 02/14/2025 [facility] FOR RECORDS PERTAINING TO PATIENTS WHO ARE [...] BE BASED ON THE PRIMARY CLINICAL RECORDS. [facility]. provides no warranty or guarantee of the accuracy or completeness of information in this document.
[2025-02-15 13:56] LABS: AST(SGOT) 20 U/L (<=37); Alanine Aminotransfer ALT/SGPT 27 U/L (<=46); Albumin, Serum 4.4 g/dL (3.5-5.0); Alkaline Phosphatase 60 U/L (40-129); Anion Gap 11 (5-15); BUN 20 mg/dL (4-19); BUN/Creat Ratio 22.0 RATIO (10-20); Bilirubin, Direct 0.28 mg/dL (0.00-0.30); Calcium,Total 9.0 mg/dL (7.6-11.0); Carbon Dioxide 23.4 mmol/L (21.0-32.0); Chloride 105 mmol/L (98-108); Globulin 2.2 g/dL (2.2-4.2); Glucose 96 mg/dL (70-99); Potassium 3.7 mmol/L (3.3-5.1)
== END | disposition home or self-care (01) ==
PROVIDERS: PCP Family Medicine; Referring Provider Physician Assistant; Visit Provider Physician Assistant
DX: Z01.818 Encounter for other preprocedural examination (principal); K76.0 Fatty (change of) liver, not elsewhere classified
CPT/HCPCS: 36415; 80048; 80076

== ENCOUNTER → 2025-04-19 | Outpatient (CLI) | payer OTHER, SELFPAY ==
--- OUTSIDE RECORDS SUMMARY | 2025-04-19 07:33 | XMS RPT_ITS | CCD ---
Author Organization [facility] Care Team Providers Care Rcis Name Role Phone Balaji DICK, Dr. Woo Primary Care Provider Balaji DICK, Dr. Woo Attending Provider [phone] Balaji DICK, Dr. Woo Referring Provider Tulio DICK, Dr. Lao Attending Provider [phone] Chilo Carpio Attending Unavailable Carpio, Chilo Referring Unavailable Carpio, Chilo Primary Care Unavailable Chilo Carpio Attending Unavailable Carpio, Chilo Referring Unavailable Carpio, Chilo Primary Care Unavailable Carpio, Chilo Referring Unavailable Shilo Antunez Attending Unavailable Carpio, Chilo Primary Care Unavailable Carpio, Chilo Referring Unavailable Shilo Antunez Attending Unavailable Carpio, Chilo Primary Care Unavailable Carpio, Chilo Referring Unavailable Carpio, Chilo Primary Care Unavailable Chilo Carpio Attending Unavailable Shilo Antunez Attending Unavailable Shilo Antunez Referring Unavailable Carpio, Chilo Primary Care Unavailable Carpio, Chilo Primary Care Unavailable Roya Singh Attending Unavailable Roya Singh Referring Unavailable Dasha Goode Referring Unavailable Carpio, Chilo Primary Care Unavailable Dasha Goode Attending Unavailable Medications Current Medications Medication Drug [...] Classification Problem Date Documented Da te Episodic/Chronic Alcohol-related disorders (1 source) Alcoholic hepatitis without ascites; Translations: [Alcoholic hepatitis without ascites] Onset: 02-19-2025 Chronic Other male genital disorders (1 source) Male erectile dysfunction, unspecified; Translations: [Male erectile dysfunction, unspecified] Onset: 09-23-2024 Chronic Sprains and strains (2 sources) Strain of muscle, fascia and tendon of other parts of biceps, left arm, subsequent encounter; Translations: [Other sprain of left elbow, subsequent encounter] Onset: 03-09-2025 Episodic Past or Other Problems Problem Classification Problem Date Documented Da te Episodic/Chronic Other screening for suspected conditions (not mental disorders or infectious disease) (1 source) Other specified abnormal findings of blood chemistry; Translations: [Other specified abnormal findings of blood chemistry] Onset: 10-14-2024 Episodic Results Test Name Value Interpretation Reference [place] Facility Inital Evaluation (1) - PT 03-09-2025 Inital Evaluation (1) - [facility] [address] [place] [address] [address] [place] [address] / REHABILITATION SERVICES INITIAL EVALUATION MR#: [id number] Acct: [id number] Name: AIDAN CERRATO Rep #: [id number] : 1975 49 From: Chilo Zavala DPT, [place], CSCS Referring Dr.: LIA Banda Status: REG RCR Insurance: [employer] SELF PAY INSURANCE Patient's Visit Information Visit Information Visit Information: AIDAN CERRATO is a 49 year old M referred to Physical Therapy by LIA Banda with a diagnosis of biceps strain, s/p biceps distal rupture fix 02/17. Date of Evaluation: 03/09/25 Physical Therapist: Chilo Zavala DPT, OCS, CSCS Visit Plan Frequency: 2-3x /Week Duration: 3 Months Plan: 2-3x/week for 8-12 weeks for IE HEP AROM pronation supination gently 15x, PROM eelbow flexion 15x stand and supinee, elbow eextension stand adn supinee 15x 3x/day, ball squeeze throughout day Treat with PROM eelbow flexion, AROM extnsion eelbow, AAROM to aROM supination pronation. No AROM more than weight of arm until March f/u. scar massage, manual stretching and progression of HEP, ic as needed. 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 Some pain after a while but did not work right. Went to shortly after at [facility] and doctor fixd it 02/17. been in sling since. That was 3 weeks ago. Last week out of wrap and in sling two more weeks. has another wek in sling. No exercises. 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 Will be off for 8-12 weeks. Sleep is not great, Uncomfortable at night but improving. 2-3 hrs per night and sling off now. MH and recliner helps. Pain up to 9 /10 the other day and happening 3-4 x/week happening throughout the day. basic ADLs: dress self, shower and bathe I, is R handed. 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 Lifted heavy prior to this. Numbness and index since surgery and should be 2-3 weeks. Weakness squeezing with L hand. Restriction is 8 oz cup of coffee Pain R foreearm: Pain Intensity (Out of 10): 0 Pain Intensity Range: 0 and 9 Comment: forearm nervee Objective Objective: Walks into PT I with sling on and dons and doffs I, shirt also donnd and doffed I, slow with limitd L arm usage but able. Trasnfers I chair and table. He is in good shape and moves well. B shouldrs scap moving normal and without hesitation, not a lot of pain today. incision L elbow have stristrips in place and are healing with mild scarring palpable and moderate tenderness. Dry and no signs of redness heat or swelling. R elbow and wrist moving well. R elbow to 72 flxion vs 60 L, -28 extension vs 0 on R. PROm to -25. supination -25 on L vs R, full pronation B but feels stiff on L hand feels wedak to intrinsics on L v R as does thumb and squeeezing my hand today. Balance/Special Test Scores Quick DASH Score: 86.3625 Goals Goal 1:: ST: sleep through night without waking Goal Time Frame: 2-4 Weeks Goal 2:: ST: full PROM L elbow and wrist without pain Goal Time Frame: 2-4 Weeks Goal 3:: LT: Full use of L U in activities of getting dresses and walking dogs Goal Time Frame: 8-12 Weeks Goal 4:: quickdash score 14 or bettr Goal Time Frame: 8-12 Weeks Goal 5:: Return to full gym workout without pain I Goal Time Frame: 8-12 Weeks Goal 6:: Pt feel 90% back to normal and plan to return to work Goal Time Frame: 8-12 Weeks Rehabilitation Potential Physical Therapy Diagnosis: stiffness and lack of use L biceps and arm limiting fucniton. Rehabilitation Potential: Good Anticipated Interventions Patient/Client Instruction: Educate patient on: Condition and Plan of Care For the Purpose of:: To decrease pain, To increase ROM, To improve nutrient delivery to tissue, To improve muscle performance and motor function, To increase tolerance to activity/condition/po sition, To improve ability of physical actions for home/community/work/l eisure and To improve gait and locomotor functions Therapeutic Exercise to Include: Postural training, Flexibilty training, Relaxation training, Passive ROM and Active ROM For the Purpose of:: To decrease pain, To increase ROM, To improve nutrient delivery to tissue, To improve muscle performance and motor function and To increase tolerance to activity/conditio n/position Manual Therapy Techniques to Include: Scar massage, Passive ROM and Soft tissue mobilization For the Purpose of:: To decrease pain, To increase ROM and To improve nutrient delivery to tissue Cryotherapy (ice pack, ice massage): Yes For the Purpose of:: To decrease swelling/inflammation and To improve nutrient delivery to tissue Text: Thank you for the opportunity to evaluate your patient. For Medicare and Medicare HMO pl (more content not included)... Normal [facility] Visit Repor ton 03-02-2025 Gastroenterology Visit Report [facility] Gastroenterology [address] [place] [address] OFFICE VISIT Date of Service: 03/02/25 MR#: [id number] Acct: [id number] Name: AIDAN CERRATO Rep #: [id number] : 1975 Provider: Dr. Shilo rowland MD Age/Sex: 49/M Location: [facility] [place] Status: Signed Intake Vital Signs 11/06/24 13:32 03/02/25 12:11 Height 6 ft 4 in 6 ft 4 in Weight: 284 lb 280 lb BMI 34.5 34.0 BP 129/85 H 145/83 H Blood Pressure Location Lt brachial Lt brachial Position Sitting Sitting Pulse 69 60 Pulse Oximetry (%) 97 95 Oxygen Delivery Method room air room air Intake Visit Reasons: Abnormal liver enzymes Allergies No Known Allergies Allergy (Verified 03/02/25 11:44) Medications ???Medication ???Instructions ???Recorded ???Confirmed ???Type bupropion HCl 150 mg 24 hr tablet, 150 mg PO BID 10/16/24 03/02/25 History extended release (Wellbutrin XL) sildenafil 100 mg tablet (Viagra) 100 mg PO QDAY PRN 10/16/2403/02 History PFSH Medical History Erectile dysfunction Low HDL (under 40) Fatigue Obesity, 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 US abd/ elastography ..25- Liver measures 20.2cm, Stiffness 10 kPa 5..25 Fib-4 2.40 OV 7..- Patient denies any specific symptoms related to [...] substance use/IVDA. Denies history of viral hepatitis OV 03/02/2025: No specific complaint. Drinks occasionally beer couple times a month. Advised to quit beer. Labs shows elevated ferritin. Denies family history of liver disease or hemoc hromatosis. ROS Const Constitutional: No fatigue, fever(s), weakness [...] difficulty urinating or burning urination Musc Musculoskeletal: Positive for joint swelling, muscle weakness and stiffness; No back pain Skin Skin: No yellowing of the [...] well developed Nutritional Appearance: average body habitus Orientation: alert, awake and oriented x3 Other: BMI 34.0 KG per square meter. 280 pound lost 4 pounds since last office visit in October 2023 [facility] Head: normocephalic and atraumatic Nose: external nose [...] no hepatosplenomegaly and no guarding Other: Liver not enlarged/nontender over the right costal margin. Liver dullness starts at right fifth ICS at midclavicul (more content not included)... Normal [facility] L3410.9992on 02-19-2025 [facility] [place]. COMMENT Normal . [facility] Comment on above: Order Comment: [id number] 9Serum ELF test Result Comment: Test Ordered: [id number] Enhanced Liver Fibrosis (ELF) ELF(TM) Score 8.47 Reference Range: <9.80 ELF(TM) Score Interpretation: Risk cut-offs to assess the likelihood of progression to cirrhosis and liver-related clinical events within 3.9 years following baseline ELF score (IQR: 14.0-22.4 months)*: Lower risk < 9.80 Mid risk 9.80 - 11.29 Higher risk >11.29 Note: The ELF(TM) Score is a unitless numerical value. *Doyle SA, Leno LONDON, Lena T, et al. Selonsertib for patients with bridging fibrosis or compensated cirrhosis due to ENAMORADO: Results from randomized phase III STELLAR trials. J Hepatol. 2020 Oct;73(1):26-39. Performed at: [facility] [address] [id number] Gun Examiner: Mitesh Lion MD, Phone: [phone] Performed at: [facility] [address] [id number] Gun Examiner: Pierre Castro PhD, Phone: [phone] Performed By: #### L 500.4050, L501.5101, L500.4100, L300.3900, L503.6550, L3000.0375, L800.1280, L501.9985, L3890.6202, L3100.5450, L3410.9992, L803.2200, L503.6030, L3400.0700, L3890.6006, L3100.0460 ####[facility] [address] [place], [address] FRANCESCA w/ Reflex Mult Confirmon 02-15-2025 ANTI-DNA (DS)AB TNP Normal [facility] Comment on above: Performed By: #### L 500.4050, L501.5101, L500.4100, L300.3900, L503.6550, L3000.0375, L800.1280, L501.9985, L3890.6202, L3100.5450, L3410.9992, L803.2200, L503.6030, L3400.0700, L3890.6006, L3100.0460 #### [facility] [address] [facility] [place], [address] ANTI-SS-A TNP Normal [facility] Comment on above: Performed By: #### L 500.4050, L501.5101, L500.4100, L300.3900, L503.6550, L3000.0375, L800.1280, L501.9985, L3890.6202, L3100.5450, L3410.9992, L803.2200, L503.6030, L3400.0700, L3890.6006, L3100.0460 #### [facility] [address] [place], [address] ANTI-SS-B TNP Normal [facility] Comment on above: Performed By: #### L 500.4050, L501.5101, L500.4100, L300.3900, L503.6550, L3000.0375, L800.1280, L501.9985, L3890.6202, L3100.5450, L3410.9992, L803.2200, L503.6030, L3400.0700, L3890.6006, L3100.0460 #### [facility] [address] [place], [place], [id number] Basic Metabolic Profile (BMP )on 02-15-2025 BUN/CRE 22.0 RATIO High 02-15 [facility] Comment on above: Performed By: #### L 500.3400, L500.2500 ####[facility] [address] [place], [address] Calcium [Mass/Vol] 9.0 mg/dL Normal 7.6-11.0 [facility] Comment on above: Performed By: #### L 500.3400, L500.2500 ####[facility] [address] [place], [address] Chloride [Moles/Vol] 105 mmol/L Normal 98-108 [facility] Comment on above: Performed By: #### L 500.3400, L500.2500 ####[facility] [address] [place], [address] CO2 [Moles/Vol] 23.4 mmol/L Normal 21.0-32.0 [facility] Comment on above: Performed By: #### L 500.3400, L500.2500 ####[facility] [address] [place], [address] Creatinine [Mass/Vol] 0.89 mg/dL Normal 0.70-1.20 [facility] Comment on above: Performed By: #### L 500.3400, L500.2500 ####[facility] [address] [place], [address] GAP 11 Normal 5-15 [facility] Comment on above: Performed By: #### L 500.3400, L500.2500 ####[facility] [address] [place], [address] GFR/1.73 sq M.predicted among non-blacks MDRD (S/P/Bld) [Vol rate/Area] 106 mL/min/{1.73_m2} Normal >60 [facility] Comment on above: Result Comment: mL/m in/1.73m2 CKD-EPI Creatinine Equation (2020) Performed By: #### L 500.3400, L500.2500 ####[facility] [address] [place], [address] Glucose [Mass/Vol] 96 mg/dL Normal 70-99 [facility] Comment on above: Performed By: #### L 500.3400, L500.2500 ####[facility] [address] [place], [address] Potassium [Moles/Vol] 3.7 mmol/L Normal 3.3-5.1 [facility] Comment on above: Performed By: #### L 500.3400, L500.2500 ####[facility] [address] [place], [address] Sodium [Moles/Vol] 140 mmol/L Normal 133-145 [facility] Comment on above: Performed By: #### L 500.3400, L500.2500 ####[facility] [address] [place], [address] Urea nitrogen [Mass/Vol] 20 mg/dL High 4-19 [facility] Comment on above: Performed By: #### L 500.3400, L500.2500 ####[facility] [address] [place], [address] Liver Profileon 02-15-2025 Albumin [Mass/Vol] 4.4 g/dL Normal 3.5-5.0 [facility] Comment on above: Performed By: #### L 500.3400, L500.2500 ####[facility] [address] [place], [address] ALK PHOS 60 U/L Normal 40-129 [facility] Comment on above: Performed By: #### L 500.3400, L500.2500 ####[facility] [address] [place], [address] ALT [Catalytic activity/Vol] 27 U/L Normal <=46 [facility] Comment on above: Performed By: #### L 500.3400, L500.2500 ####[facility] [address] [place], [address] AST [Catalytic activity/Vol] 20 U/L Normal <=37 [facility] Comment on above: Performed By: #### L 500.3400, L500.2500 ####[facility] [address] [place], [address] Bilirubin [Mass/Vol] 0.69 mg/dL Normal 0.00-1.30 [facility] Comment on above: Performed By: #### L 500.3400, L500.2500 ####[facility] [address] [place], [address] Bilirubin.direct [Mass/Vol] 0.28 mg/dL Normal 0.00-0.30 [facility] Comment on above: Performed By: #### L 500.3400, L500.2500 ####[facility] [address] [place], [address] Globulin (S) [Mass/Vol] 2.2 g/dL Normal 2.2-4.2 [facility] Comment on above: Performed By: #### L 500.3400, L500.2500 ####[facility] [address] [place], [address] T PROT 6.7 g/dL Normal 5.9-8.4 [facility] Comment on above: Performed By: #### L 500.3400, L500.2500 ####[facility] [address] [place], [address] Anti-Mitochondrial ABon - ANTIMITOCHON AB <20.0 Normal 0.0-20.0 [facility] Comment on above: Result Comment: Nega tive 0.0 - 20.0 Equivocal 20.1 - 24.9 Positive >24.9 Mitochondrial (M2) Antibodies are found in 90-96% of patients with primary biliary cirrhosis. Performed By: #### L 500.4050, L501.5101, L500.4100, L300.3900, L503.6550, L3000.0375, L800.1280, L501.9985, L3890.6202, L3100.5450, L3410.9992, L803.2200, L503.6030, L3400.0700, L3890.6006, L3100.0460 ####[facility] [address] [facility]. [place], [place], [id number] Anti-Smooth Muscle ABSon ANTISMOOTH MUSC 6 Units Normal 0-19 [facility] Comment on above: Result Comment: Nega tive 0 - 19 Weak positive 20 - 30 Moderate to strong positive >30 Actin Antibodies are found in 52-85% of patients with autoimmune hepatitis or chronic active hepatitis and in 22% of patients with primary biliary cirrhosis. Performed By: #### L 500.4050, L501.5101, L500.4100, L300.3900, L503.6550, L3000.0375, L800.1280, L501.9985, L3890.6202, L3100.5450, L3410.9992, L803.2200, L503.6030, L3400.0700, L3890.6006, L3100.0460 ####[facility] [address] [place], [address] Ceruloplasminon 02-12-2025 CERULOPLASMIN 20.7 mg/dL Normal 16.0-31.0 [facility] Comment on above: Performed By: #### L 500.4050, L501.5101, L500.4100, L300.3900, L503.6550, L3000.0375, L800.1280, L501.9985, L3890.6202, L3100.5450, L3410.9992, L803.2200, L503.6030, L3400.0700, L3890.6006, L3100.0460 ####[facility] [address] [place], [place], [id number] Hepatitis B Core Ab Totalon 02-12-2025 HEP B CORE,TOT Negative Normal Negative [facility] Comment on above: Result Comment: Perf ormed at: [address] [id number] Gun Examiner: Pierre Castro PhD, Phone: [phone] Performed By: #### L 500.4050, L501.5101, L500.4100, L300.3900, L503.6550, L3000.0375, L800.1280, L501.9985, L3890.6202, L3100.5450, L3410.9992, L803.2200, L503.6030, L3400.0700, L3890.6006, L3100.0460 ####[facility] [address] [place], [place], [id number] Hepatitis Panel Acuteon 01-27 COMMENT Comment Normal . [facility] Comment on above: Result Comment: Not infected with HCV unless early or acute infection is suspected (which may be delayed in an immunocompromised individual), or other evidence exists to indicate HCV infection. Performed By: #### L 500.4050, L501.5101, L500.4100, L300.3900, L503.6550, L3000.0375, L800.1280, L501.9985, L3890.6202, L3100.5450, L3410.9992, L803.2200, L503.6030, L3400.0700, L3890.6006, L3100.0460 ####[facility] [address] [place], [place], [address] HEP B CORE,IgM Negative Normal Negative [facility] Comment on above: Performed By: #### L 500.4050, L501.5101, L500.4100, L300.3900, L503.6550, L3000.0375, L800.1280, L501.9985, L3890.6202, L3100.5450, L3410.9992, L803.2200, L503.6030, L3400.0700, L3890.6006, L3100.0460 ####[facility] [address] [facility]. [place], [place], [id number] HEP B SURF AG Negative Normal Negative [facility] Comment on above: Performed By: #### L 500.4050, L501.5101, L500.4100, L300.3900, L503.6550, L3000.0375, L800.1280, L501.9985, L3890.6202, L3100.5450, L3410.9992, L803.2200, L503.6030, L3400.0700, L3890.6006, L3100.0460 ####[facility] [address] [facility] [place], [address] HEP C VIRUS AB Non-Reactive Normal Non Reactive [facility] Comment on above: Performed By: #### L 500.4050, L501.5101, L500.4100, L300.3900, L503.6550, L3000.0375, L800.1280, L501.9985, L3890.6202, L3100.5450, L3410.9992, L803.2200, L503.6030, L3400.0700, L3890.6006, L3100.0460 ####[facility] [address] [facility] [place], [address] HEPATITIS A-IgM Negative Normal Negative [facility] Comment on above: Result Comment: A ne gative anti-HAV IgM result suggests no recent or current HAV infection. Performed By: #### L 500.4050, L501.5101, L500.4100, L300.3900, L503.6550, L3000.0375, L800.1280, L501.9985, L3890.6202, L3100.5450, L3410.9992, L803.2200, L503.6030, L3400.0700, L3890.6006, L3100.0460 ####[facility] [address] [place], [place], [phone]- L501.5101on 02-12-2025 GGTP 15 IU/L Normal 0-65 [facility] Comment on above: Performed By: #### L 500.4050, L501.5101, L500.4100, L300.3900, L503.6550, L3000.0375, L800.1280, L501.9985, L3890.6202, L3100.5450, L3410.9992, L803.2200, L503.6030, L3400.0700, L3890.6006, L3100.0460 ####[facility] [address] [facility] [address] [place], [place], [id number] Comprehensive Metabolic Prof ilon 02-10-2025 Albumin [Mass/Vol] 4.6 g/dL Normal 3.5-5.0 [facility] Comment on above: Result Comment: AMENDED REPORT 02/10/251549 ALB previously reported as: 4.7 g/dL Performed By: #### L 500.4050, L501.5101, L500.4100, L300.3900, L503.6550, L3000.0375, L800.1280, L501.9985, L3890.6202, L3100.5450, L3410.9992, L803.2200, L503.6030, L3400.0700, L3890.6006, L3100.0460 #### [facility] [address] [facility] [address] [place], [place], [address] Albumin/Globulin [Mass ratio] 1.8 {ratio} Normal 0.9-2.4 [facility] Comment on above: Result Comment: AMENDED REPORT 02/10/251549 A/G previously reported as: 2.3 RATIO Performed By: #### L 500.4050, L501.5101, L500.4100, L300.3900, L503.6550, L3000.0375, L800.1280, L501.9985, L3890.6202, L3100.5450, L3410.9992, L803.2200, L503.6030, L3400.0700, L3890.6006, L3100.0460 #### [facility] [address] [facility] [place], [place], [id number] ALK PHOS 64 U/L Normal 40-129 [facility] Comment on above: Result Comment: AMENDED REPORT 02/10/251549 ALK P previously reported as: 66 U/L Performed By: #### L 500.4050, L501.5101, L500.4100, L300.3900, L503.6550, L3000.0375, L800.1280, L501.9985, L3890.6202, L3100.5450, L3410.9992, L803.2200, L503.6030, L3400.0700, L3890.6006, L3100.0460 #### [facility] [address] [facility]. [place], [place], [address] ALT [Catalytic activity/Vol] 26 U/L Normal <=46 [facility] Comment on above: Result Comment: AMENDED REPORT 02/10/251549 ALT previously reported as: 28 U/L Performed By: #### L 500.4050, L501.5101, L500.4100, L300.3900, L503.6550, L3000.0375, L800.1280, L501.9985, L3890.6202, L3100.5450, L3410.9992, L803.2200, L503.6030, L3400.0700, L3890.6006, L3100.0460 #### [facility] [address] [facility], [place], [id number] AST [Catalytic activity/Vol] 20 U/L Normal <=37 [facility] Comment on above: Performed By: #### L 500.4050, L501.5101, L500.4100, L300.3900, L503.6550, L3000.0375, L800.1280, L501.9985, L3890.6202, L3100.5450, L3410.9992, L803.2200, L503.6030, L3400.0700, L3890.6006, L3100.0460 #### [facility] [address] [place], [place], [id number] Bilirubin [Mass/Vol] 0.78 mg/dL Normal 0.00-1.30 [facility] Comment on above: Result Comment: AMENDED REPORT 02/10/25 1550 T BILI previously reported as: 0.84 mg/dL Performed By: #### L 500.4050, L501.5101, L500.4100, L300.3900, L503.6550, L3000.0375, L800.1280, L501.9985, L3890.6202, L3100.5450, L3410.9992, L803.2200, L503.6030, L3400.0700, L3890.6006, L3100.0460 #### [facility] [address] [place], [place], [id number] BUN/CRE 18.8 RATIO Normal 10-20 [facility] Comment on above: Performed By: #### L 500.4050, L501.5101, L500.4100, L300.3900, L503.6550, L3000.0375, L800.1280, L501.9985, L3890.6202, L3100.5450, L3410.9992, L803.2200, L503.6030, L3400.0700, L3890.6006, L3100.0460 #### [facility] [address] [place], [address] Calcium [Mass/Vol] 9.3 mg/dL Normal 7.6-11.0 [facility] Comment on above: Result Comment: AMENDED REPORT 02/10/251549 CA previously reported as: 9.2 mg/dL Performed By: #### L 500.4050, L501.5101, L500.4100, L300.3900, L503.6550, L3000.0375, L800.1280, L501.9985, L3890.6202, L3100.5450, L3410.9992, L803.2200, L503.6030, L3400.0700, L3890.6006, L3100.0460 #### [facility] [address] [place], [address] Chloride [Moles/Vol] 106 mmol/L Normal 98-108 [facility] Comment on above: Performed By: #### L 500.4050, L501.5101, L500.4100, L300.3900, L503.6550, L3000.0375, L800.1280, L501.9985, L3890.6202, L3100.5450, L3410.9992, L803.2200, L503.6030, L3400.0700, L3890.6006, L3100.0460 #### [facility] [address] [place], [address] CO2 [Moles/Vol] 22.6 mmol/L Normal 21.0-32.0 [facility] Comment on above: Result Comment: AMENDED REPORT 02/10/251549 CO2 previously reported as: 24.0 mmol/L Performed By: #### L 500.4050, L501.5101, L500.4100, L300.3900, L503.6550, L3000.0375, L800.1280, L501.9985, L3890.6202, L3100.5450, L3410.9992, L803.2200, L503.6030, L3400.0700, L3890.6006, L3100.0460 #### [facility] [address] [place], [address] Creatinine [Mass/Vol] 0.97 mg/dL Normal 0.70-1.20 [facility] Comment on above: Result Comment: AMENDED REPORT 02/10/251549 CREAT,SERUM previously reported as: 0.94 mg/dL Performed By: #### L 500.4050, L501.5101, L500.4100, L300.3900, L503.6550, L3000.0375, L800.1280, L501.9985, L3890.6202, L3100.5450, L3410.9992, L803.2200, L503.6030, L3400.0700, L3890.6006, L3100.0460 #### [facility] [address] [place], [address] GAP 11 Normal - [facility] Comment on above: Result Comment: AMENDED REPORT 02/10/251549 GAP previously reported as: 11 Performed By: #### L 500.4050, L501.5101, L500.4100, L300.3900, L503.6550, L3000.0375, L800.1280, L501.9985, L3890.6202, L3100.5450, L3410.9992, L803.2200, L503.6030, L3400.0700, L3890.6006, L3100.0460 #### [facility] [address] [place], [address] Globulin (S) [Mass/Vol] 2.6 g/dL Normal 2.2-4.2 [facility] Comment on above: Result Comment: AMENDED REPORT 02/10/251549 GLOB previously reported as: 2.1 L g/dL Performed By: #### L 500.4050, L501.5101, L500.4100, L300.3900, L503.6550, L3000.0375, L800.1280, L501.9985, L3890.6202, L3100.5450, L3410.9992, L803.2200, L503.6030, L3400.0700, L3890.6006, L3100.0460 #### [facility] [address] [place], [place], [address] Glucose [Mass/Vol] 94 mg/dL Normal 70-99 [facility] Comment on above: Performed By: #### L 500.4050, L501.5101, L500.4100, L300.3900, L503.6550, L3000.0375, L800.1280, L501.9985, L3890.6202, L3100.5450, L3410.9992, L803.2200, L503.6030, L3400.0700, L3890.6006, L3100.0460 #### [facility] [address] [place], [place], [address] Potassium [Moles/Vol] 4.0 mmol/L Normal 3.3-5.1 [facility] Comment on above: Result Comment: AMENDED REPORT 02/10/251549 K previously reported as: 4.1 mmol/L Performed By: #### L 500.4050, L501.5101, L500.4100, L300.3900, L503.6550, L3000.0375, L800.1280, L501.9985, L3890.6202, L3100.5450, L3410.9992, L803.2200, L503.6030, L3400.0700, L3890.6006, L3100.0460 #### [facility] [address] [place], [place], [address] Sodium [Moles/Vol] 140 mmol/L Normal 133-145 [facility] Comment on above: Result Comment: AMENDED REPORT 02/10/251549 NA previously reported as: 141 mmol/L Performed By: #### L 500.4050, L501.5101, L500.4100, L300.3900, L503.6550, L3000.0375, L800.1280, L501.9985, L3890.6202, L3100.5450, L3410.9992, L803.2200, L503.6030, L3400.0700, L3890.6006, L3100.0460 #### [facility] [address] [place], [place], [address] T PROT 7.1 g/dL Normal 5.9-8.4 [facility] Comment on above: Result Comment: AMENDED REPORT 02/10/251549 T PROT previously reported as: 6.8 g/dL Performed By: #### L 500.4050, L501.5101, L500.4100, L300.3900, L503.6550, L3000.0375, L800.1280, L501.9985, L3890.6202, L3100.5450, L3410.9992, L803.2200, L503.6030, L3400.0700, L3890.6006, L3100.0460 #### [facility] [address] [place], [place], [address] Urea nitrogen [Mass/Vol] 18 mg/dL Normal 4-19 [facility] Comment on above: Performed By: #### L 500.4050, L501.5101, L500.4100, L300.3900, L503.6550, L3000.0375, L800.1280, L501.9985, L3890.6202, L3100.5450, L3410.9992, L803.2200, L503.6030, L3400.0700, L3890.6006, L3100.0460 #### [facility] [address] [place], [address] Ferritinon 02-10-2025 Ferritin [Mass/Vol] 809 ng/mL High 37-417 [facility] Comment on above: Performed By: #### L 500.4050, L501.5101, L500.4100, L300.3900, L503.6550, L3000.0375, L800.1280, L501.9985, L3890.6202, L3100.5450, L3410.9992, L803.2200, L503.6030, L3400.0700, L3890.6006, L3100.0460 ####[facility] [address] [place], [address] HIVon 02-10-2025 HIV Non-Reactive Normal Nonreactive [facility] Comment on above: Result Comment: Non- Reactive Reactive Repeatedly reactive samples must be confirmed according to CDC recommended confirmatory algorithms. The subresults for either HIVAG or AHIV can be used as an aid in the selection of the confirmation algorithm for reactive samples. Send out specimens with Reactive results to [facility] for confirmation. Order the HIV antibody detection and differentiation: #[id number] Performed By: #### L 500.4050, L501.5101, L500.4100, L300.3900, L503.6550, L3000.0375, L800.1280, L501.9985, L3890.6202, L3100.5450, L3410.9992, L803.2200, L503.6030, L3400.0700, L3890.6006, L3100.0460 ####[facility] [address] [place], [place], [address] Hemoglobin A1con 02-10-2025 HbA1c (Bld) [Mass fraction] 5.2 % Normal <=5.6 [facility] Comment on above: Result Comment: Norm al < 5.7 % Prediabetic 5.7 - 6.4 % Diabetic >or= 6.5 % Please note range changes. Performed By: #### L 500.4050, L501.5101, L500.4100, L300.3900, L503.6550, L3000.0375, L800.1280, L501.9985, L3890.6202, L3100.5450, L3410.9992, L803.2200, L503.6030, L3400.0700, L3890.6006, L3100.0460 #### [facility] [address] [place], [address] Hepatitis B Surface Antibody on 02-10-2025 HEP B Surf Ab Non-Reactive Normal [facility] Comment on above: Result Comment: <8.5 mIU/mL: Non-Reactive 8.5<= x <11.5 mIU/mL: Indeterminate >=11.5 mIU/mL: Reactive Non Reactive: Inconsistent with immunity less than <10 mIU/mL Reactive: Consistent with immunity greater than or equal to 10 mIU/mL Performed By: #### L 500.4050, L501.5101, L500.4100, L300.3900, L503.6550, L3000.0375, L800.1280, L501.9985, L3890.6202, L3100.5450, L3410.9992, L803.2200, L503.6030, L3400.0700, L3890.6006, L3100.0460 #### [facility] [address] [facility] [place], [address] Iron+Iron Binding Capacityon 02-10-2025 Iron [Mass/Vol] 88 ug/dL Normal 65-175 [facility] Comment on above: Performed By: #### L 500.4050, L501.5101, L500.4100, L300.3900, L503.6550, L3000.0375, L800.1280, L501.9985, L3890.6202, L3100.5450, L3410.9992, L803.2200, L503.6030, L3400.0700, L3890.6006, L3100.0460 #### [facility] [address] [place], [place], [id number] IRON SATURATION 34.6 Normal 9-55 [facility] Comment on above: Performed By: #### L 500.4050, L501.5101, L500.4100, L300.3900, L503.6550, L3000.0375, L800.1280, L501.9985, L3890.6202, L3100.5450, L3410.9992, L803.2200, L503.6030, L3400.0700, L3890.6006, L3100.0460 #### [facility] [address] [place], [place], [address] TIBC 255 ug/dL Normal 250-450 [facility] Comment on above: Performed By: #### L 500.4050, L501.5101, L500.4100, L300.3900, L503.6550, L3000.0375, L800.1280, L501.9985, L3890.6202, L3100.5450, L3410.9992, L803.2200, L503.6030, L3400.0700, L3890.6006, L3100.0460 #### [facility] [address] [facility] [place], [address] UIBC 167 ug/dL Low 228-428 [facility] Comment on above: Performed By: #### L 500.4050, L501.5101, L500.4100, L300.3900, L503.6550, L3000.0375, L800.1280, L501.9985, L3890.6202, L3100.5450, L3410.9992, L803.2200, L503.6030, L3400.0700, L3890.6006, L3100.0460 #### [facility] [address] [place], [place], [address] Lipid Profileon 02-10-2025 CHOL:HDL 2.90 Normal [facility] Comment on above: Performed By: #### L 500.4050, L501.5101, L500.4100, L300.3900, L503.6550, L3000.0375, L800.1280, L501.9985, L3890.6202, L3100.5450, L3410.9992, L803.2200, L503.6030, L3400.0700, L3890.6006, L3100.0460 ####[facility] [address] [facility] [place], [place], [address] Cholesterol [Mass/Vol] 137 mg/dL Normal <=200 [facility] Comment on above: Result Comment: Chol esterol level, Desirable <200 mg/dL Borderline high cholesterol 200-239 mg/dL High cholesterol >=240 mg/dL Recommendations of the NCEP Adult Treatment Panel for the following risk-cutoff thresholds for the [place] population. Performed By: #### L 500.4050, L501.5101, L500.4100, L300.3900, L503.6550, L3000.0375, L800.1280, L501.9985, L3890.6202, L3100.5450, L3410.9992, L803.2200, L503.6030, L3400.0700, L3890.6006, L3100.0460 ####[facility] [address] [facility] [address] [facility] [address] [place], [place], [address] Cholesterol in HDL [Mass/Vol] 47 mg/dL Normal [facility] Comment on above: Result Comment: Denia onal Cholesterol Education Program (NCEP) guidelines: <40 mg/dL: Low HDL-cholesterol (major risk factor for CHD) >= 60 mg/dL: High HDL-cholesterol (negative risk factor for CHD) HDL-cholesterol is affected by a number of factors, e.g. smoking, exercise, hormones, sex and age. Performed By: #### L 500.4050, L501.5101, L500.4100, L300.3900, L503.6550, L3000.0375, L800.1280, L501.9985, L3890.6202, L3100.5450, L3410.9992, L803.2200, L503.6030, L3400.0700, L3890.6006, L3100.0460 ####[facility] [address] [place], [place], [phone]) Cholesterol in LDL [Mass/Vol] 76 mg/dL Normal [facility] Comment on above: Result Comment: Bord drkogf=214-259 mg/dL Higher Eufl=654 mg/dL or greater Friedwald Equation for LDL-C Performed By: #### L 500.4050, L501.5101, L500.4100, L300.3900, L503.6550, L3000.0375, L800.1280, L501.9985, L3890.6202, L3100.5450, L3410.9992, L803.2200, L503.6030, L3400.0700, L3890.6006, L3100.0460 ####[facility] [address] [place], [phone]) Cholesterol in VLDL [Mass/Vol] 14 mg/dL Normal 5-40 [facility] Comment on above: Performed By: #### L 500.4050, L501.5101, L500.4100, L300.3900, L503.6550, L3000.0375, L800.1280, L501.9985, L3890.6202, L3100.5450, L3410.9992, L803.2200, L503.6030, L3400.0700, L3890.6006, L3100.0460 ####[facility] [address] [place], [phone]) Triglyceride [Mass/Vol] 68 mg/dL Normal [facility] Comment on above: Result Comment: The drugs N-Acetylcysteine and Metamizole may falsely depress this assay. Normal range: <150 mg/dL Borderline High: 150-199 mg/dL High: 200-499 mg/dL Very High: >500 mg/dL Performed By: #### L 500.4050, L501.5101, L500.4100, L300.3900, L503.6550, L3000.0375, L800.1280, L501.9985, L3890.6202, L3100.5450, L3410.9992, L803.2200, L503.6030, L3400.0700, L3890.6006, L3100.0460 ####[facility] [address] [facility] [place], [place], [id number] Prothrombin Time w/INRon - INR Coag (PPP) [Relative time] 1.0 {INR} Normal [facility] Comment on above: Performed By: #### L 500.4050, L501.5101, L500.4100, L300.3900, L503.6550, L3000.0375, L800.1280, L501.9985, L3890.6202, L3100.5450, L3410.9992, L803.2200, L503.6030, L3400.0700, L3890.6006, L3100.0460 #### [facility] [address] [place], [place], [address] PT Coag (PPP) [Time] 13.2 s Normal 11.7-14.9 [facility] Comment on above: Performed By: #### L 500.4050, L501.5101, L500.4100, L300.3900, L503.6550, L3000.0375, L800.1280, L501.9985, L3890.6202, L3100.5450, L3410.9992, L803.2200, L503.6030, L3400.0700, L3890.6006, L3100.0460 #### [facility] [address] [place], [address] Gastroenterology Visit Repor ton 11-06-2024 Gastroenterology Visit Report [facility] Gastroenterology [address] [place] [address] OFFICE VISIT Date of Service: 11/06/24 MR#: [id number] Acct: [id number] Name: AIDAN CERRATO Rep #: [id number] : 1975 Provider: Dr. Shilo rowland MD Age/Sex: 48/M Location: [facility] [place] Status: Signed Intake Vital Signs 11/06/24 13:32 [...] for elevated liver enzymes. US abd/ elastography 6.10.25- Liver measures 20.2cm, Stiffness 10 kPa 5.20.25 [...] and/or lesions (more content not included)... Normal [facility] ABD Limited w/ Elastographyo n 10-06-2024 ABD Limited w/ Elastography [facility] Imaging Services [address] [place], [place] [address] ABD Limited w/ Elastography MR#: [id number] Acct: [id number] Name: AIDAN CERRATO Rep #: [id number] : 1975 M 48 From: Jeremy siddiqui MD PCP: Dr. Chilo Carpio MD Status: REG CLI Study: ABD Limited w/ Elastography Date of Exam: 09/27 Exam# [id number] Ordering Dr: Adeline Sanchez MD PROCEDURE: ABD LIMITED W/ ELASTOGRAPHY REASON FOR EXAM: ELEVATED LIVER ENZYMES COMPARISON: None. TECHNIQUE: Right upper quadrant abdominal ultrasound. [employer] ElastQ Imaging shear wave elastography for non- invasive assessment of liver tissue stiffness. [employer] EPIQ Elite. FINDINGS: LIVER: Size: Enlarged (hepatomegaly) [...] measurement may be in question. Reading Location: [place] [address] CC: Dr. Adeline Sanchez MD; Dr. Chilo Carpio MD Conference Organizer: Signed Normal [facility] Testosterone, Total / Freeon 09-24-2024 TESTOSTER,FREE 7.64 ng/dL Normal 5.00-21.00 [facility] Comment on above: Order Comment: Order Date: 08/06/24Order Info: [id number] - TESTFN Performed By: #### L 3100.5310, L500.4050, L501.9520, L100.0100 ####[facility] [address] [place], [address] TESTOSTER,TOTAL 386 ng/dL Normal 264-916 [facility] Comment on above: Order Comment: Order Date: 08/06/24Order Info: [id number] - TESTFN Result Comment: Adul t male reference interval is based on a population of healthy nonobese males (BMI <30) between 19 and 39 years old. Sarah et.al. JCEM 2017,102;7080-1333. PMID: [id number]. Performed By: #### L 3100.5310, L500.4050, L501.9520, L100.0100 ####[facility] [address] [place], [address] TESTOSTERONE,%F 1.98 Normal 1.50-4.20 [facility] Comment on above: Order Comment: Order Date: 08/06/24Order Info: [id number] - TESTFN Result Comment: Perf ormed at: - [facility] [address] [id number] Gun Examiner: Pierre Castro PhD, Phone: [phone] Performed at: - [facility] [address] [id number] Gun Examiner: Mitesh Lion MD, Phone: [phone] Performed By: #### L 3100.5310, L500.4050, L501.9520, L100.0100 ####[facility] [address] [place], [place], [address] Anti-Smooth Muscle ABSon ANTISMOOTH MUSC 6 Units Normal 0-19 [facility] Comment on above: Order Comment: Order Date: 09/16/24Order Info: [id number] - HEATOrder Info: 0751-1 - CELAB Result Comment: Nega tive 0 - 19 Weak positive 20 - 30 Moderate to strong positive >30 Actin Antibodies are found in 52-85% of patients with autoimmune hepatitis or chronic active hepatitis and in 22% of patients with primary biliary cirrhosis. Performed By: #### L 3890.6102, L3890.6301, L803.2200 ####[facility] [address] [place], [place], [address] Celiac AB,Comprehensiveon ANTIGLIADIN IGA 4 units Normal 0-19 [facility] Comment on above: Order Comment: Order Date: 09/16/24Order Info: [id number] - HEATOrder Info: [id number] - CELAB Result Comment: Nega tive 0 - 19 Weak Positive 20 - 30 Moderate to Strong Positive >30 Performed By: #### L 3100.0300, L501.6710, L3410.2350 ####[facility] [address] [place], [place], [address] ANTIGLIADIN IGG 2 units Normal 0-19 [facility] Comment on above: Order Comment: Order Date: 09/16/24Order Info: [id number] - HEATOrder Info: 0751-1 - CELAB Result Comment: Nega tive 0 - 19 Weak Positive 20 - 30 Moderate to Strong Positive >30 Performed By: #### L 3100.0300, L501.6710, L3410.2350 ####[facility] [address] [place], [place], [address] ENDOMYSIAL IGA Negative Normal Negative [facility] Comment on above: Order Comment: Order Date: 09/16/24Order Info: [id number] - HEATOrder Info: 0751-1 - CELAB Performed By: #### L 3100.0300, L501.6710, L3410.2350 ####[facility] [address] [place], [address] IMMUNOGLOB A QN 194 mg/dL Normal 90-386 [facility] Comment on above: Order Comment: Order Date: 09/16/24Order Info: [id number] - HEATOrder Info: [id number] - CELAB Performed By: #### L 3100.0300, L501.6710, L3410.2350 ####[facility] [address] [place], [address] tTG IGA <2 Normal 0-3 [facility] Comment on above: Order Comment: Order Date: 09/16/24Order Info: [id number] - HEATOrder Info: 075- - CELAB Result Comment: Nega tive 0 - 3 Weak Positive 4 - 10 Positive >10 Tissue Transglutaminase (tTG) has been identified as the endomysial antigen. Studies have demonstr- ated that endomysial IgA antibodies have over 99% specificity for gluten sensitive enteropathy. Performed By: #### L 3100.0300, L501.6710, L3410.2350 ####[facility] [address] [place], [address] tTG IGG <2 Normal 0-5 [facility] Comment on above: Order Comment: Order Date: 09/16/24Order Info: [id number] - HEATOrder Info: 0751-1 - CELAB Result Comment: Nega tive 0 - 5 Weak Positive 6 - 9 Positive >9 Performed By: #### L 3100.0300, L501.6710, L3410.2350 ####[facility] [address] [place], [place], [address] Hepatitis A AB, Totalon 08-28 HEPATITIS A,TOT Negative Normal Negative [facility] Comment on above: Order Comment: Order Date: 09/16/24Order Info: [id number] - HEATOrder Info: [id number] - CELAB Result Comment: Comm ent: The HAV total antibody assay detects both IgG and IgM but does not differentiate between them. A negative result suggests susceptibility to infection. A positive result could be due to vaccination, previously resolved infection or active infection. Testing for HAV IgM should be performed if active HAV infection is suspected. [facility] offers profiles that will automatically reflex positive HAV total antibody results to IgM (e.g., panel #[id number] HAV Antibody w/ Rfx). Performed at: [address] [id number] Gun Examiner: Pierre Castro PhD, Phone: [phone] Performed By: #### L 3100.0300, L582.6710, L3410.2350 ####[facility] [address] [place], [address] CRPon 09-17-2024 C-REACTIVE PROT < 3.00 Normal 0.0-3.0 [facility] Comment on above: Order Comment: Order Date: 09/16/24Order Info: [id number] - CRP Performed By: #### L 3100.0300, L5016710, L3410.2350 ####[facility] [address] [place], [place], [address] Hepatitis C Antibodyon 09-17 Hepatitis C Ab Non-Reactive Normal Nonreactive [facility] Comment on above: Order Comment: Order Date: 09/16/24Order Info: [id number] - CRP Result Comment: Reac tive: Presumptive evidence of antibodies to HCV. Follow CDC recommendations for supplemental testing. Non-Reactive: Antibodies to HCV were not detected; does not exclude the possibility of exposure to HCV Reactive Results are presumptive evidence of antibodies to HCV. Follow CDC recommendations for supplemental testing. Order confirmation testing: HCV Quant by PCR testing - HCVPCR #[id number] Non Reactive: < 0.8 Equivocal: >/= 0.8 to < 1.0 Reactive: >/= 1.0 The [facility] requires that a reactive/equivocal HCV antibody result be sent out for confirmation. HCV Quant by PCR testing. Performed By: #### L 3890.6102, L3890.6301, L803.2200 ####[facility] [address] [place], [place], [address] L3890.6102on 09-17-2024 HEP B Surf Ag Non-Reactive Normal Nonreactive [facility] Comment on above: Order Comment: Order Date: 09/16/24Order Info: [id number] - CRP Result Comment: Reac tive: Presumptive evidence of HBV. Repeatedly reactive samples must be confirmed using a neutralization test ([employer] HBsAg Confirmatory Test) Non-Reactive: HBsAg not detected; does not exclude the possibility of exposure to HBV Performed By: #### L 3890.6102, L3890.6301, L803.2200 ####[facility] [address] [place], [place], [id number] Laboratory - Microbiology an d Antimicrobial susceptibilityOrdered By: Chilo Carpio on 09-16-2024 HBV surface Ag Ql (S) Non-Reactive Nonreactive [facility] Comment on above: Reactive: Presumptiv e evidence of HBV. Repeatedly reactive samples must be confirmed using a neutralization test ([employer] HBsAg Confirmatory Test)Non-Reactive: HBsAg not detected; does not exclude the possibility of exposure to HBV No Panel InformationOrdered By: Chilo Carpio on 09-16-2024 Tissue Transglutaminase IgG Ab <2 U/mL 0-5 [facility] Comment on above: Negative 0 - 5 Weak Positive 6 - 9 Positive >9 Serum or plasma C reactive p rotein measurement (mass/volume)Ordered By: Chilo Carpio on 09-16-2024 CRP [Mass/Vol] mg/L 0.0-3.0 [facility] Serum or plasma actin IgG an tibody assay (units/volume)Ordered By: Chilo Carpio on 09-16-2024 Actin IgG Qn 6 Units 0-19 [facility] Comment on above: Negative 0 - 19 Weak positive 20 - 30 Moderate to strong positive >30 Actin Antibodies are found in 52-85% of patients with autoimmune hepatitis or chronic active hepatitis and in 22% of patients with primary biliary cirrhosis. Serum tissue transglutaminas e (tTG) IgA antibody assay (units/volume)Ordered By: Chilo Carpio on 09-16-2024 tTG IgA Qn (S) <2 U/mL 0-3 [facility] Comment on above: Negative 0 - 3 Weak Positive 4 - 10 Positive >10 Tissue Transglutaminase (tTG) has been identified as the endomysial antigen. Studies have demonstr- ated that endomysial IgA antibodies have over 99% specificity for gluten sensitive enteropathy. Absolute lymphocyte countOrd ered By: Chilo Carpio on 09-15-2024 Lymphocytes Auto (Unsp spec) [#/Vol] 1.27 10*3/uL 0.83-4.51 [facility] Absolute neutrophil countOrd ered By: Chilo Carpio on 09-15-2024 Neutrophils (Bld) [#/Vol] 4.8 10*3/uL 2.0-7.7 [facility] Anion gap in Serum or Plasma Ordered By: Chilo Carpio on 09-15-2024 Anion gap [Moles/Vol] 11 mmol/L 5-15 [facility] Automated lymphocyte count a s percentage of total leukocytesOrdered By: Chilo Carpio on 09-15-2024 Lymphocytes/100 WBC Auto (Unsp spec) 18.1 % Low - [facility] BUN/creatinine ratioOrdered By: Chilo Carpio on 09-15-2024 Urea nitrogen/Creatinine [Mass ratio] 13.6 mg/mg 10- [facility] Basophil percentageOrdered B y: Chilo Carpio on 09-15-2024 Basophils/100 WBC (Bld) 0.3 % 0-1 [facility] Bilirubin, totalOrdered By: Chilo Carpio on 09-15-2024 Bilirubin [Mass/Vol] 0.55 mg/dL 0.00-1.30 [facility] CBC W/Diff, Automatedon 05-2 0-2024 Absolute Lymph 1.27 X10 3/uL Normal 0.83-4.51 [facility] Comment on above: Order Comment: Order Date: 08/06/24Order Info: 0184-1 - CBCD Performed By: #### L 3100.5310, L500.4050, L501.9520, L100.0100 ####[facility] [address] [place], [address] Absolute Neut 4.8 X10 3/uL Normal 2.0-7.7 [facility] Comment on above: Order Comment: Order Date: 08/06/24Order Info: [id number] - CBCD Performed By: #### L 3100.5310, L500.4050, L501.9520, L100.0100 ####[facility] [address] [place], [address] Basophils/100 WBC (Bld) 0.3 % Normal 0-1 [facility] Comment on above: Order Comment: Order Date: 08/06/24Order Info: [id number]- - CBCD Performed By: #### L [id number], L500.4050, L501.9520, L100.0100 ####[facility] [address] [place], [address] Eosinophils/100 WBC (Bld) 2.6 % Normal 0-5 [facility] Comment on above: Order Comment: Order Date: 08/06/24Order Info: [id number] - CBCD Performed By: #### L [id number], L500.4050, L501.9520, L100.0100 ####[facility] [address] [place], [address] Erythrocyte distribution width (RBC) [Ratio] 12.3 % Normal 11.6-14.6 [facility] Comment on above: Order Comment: Order Date: 08/06/24Order Info: 0184-1 - CBCD Performed By: #### L 3100.5310, L500.4050, L501.9520, L100.0100 ####[facility] [address] [place], [address] Hematocrit (Bld) [Volume fraction] 42.2 % Normal 40-54 [facility] Comment on above: Order Comment: Order Date: 08/06/24Order Info: 0184-1 - CBCD Performed By: #### L 3100.5310, L500.4050, L501.9520, L100.0100 ####[facility] [address] [place], [address] Hemoglobin (Bld) [Mass/Vol] 15.1 g/dL Normal 13.0-16.5 [facility] Comment on above: Order Comment: Order Date: 08/06/24Order Info: 0184-1 - CBCD Performed By: #### L 3100.5310, L500.4050, L501.9520, L100.0100 ####[facility] [address] [place], [address] IG% 0.300 Normal 0.0-0.9 [facility] Comment on above: Order Comment: Order Date: 08/06/24Order Info: 0184-1 - CBCD Result Comment: IG% - Immature Granulocytes (promyelocytes, myelocytes and metamyelocytes) > 1% indicates that a LEFT SHIFT is Present. Performed By: #### L 3100.5310, L500.4050, L501.9520, L100.0100 ####[facility] [address] [place], [address] Lymphocytes/100 WBC (Bld) 18.1 % Low 19-41 [facility] Comment on above: Order Comment: Order Date: 08/06/24Order Info: 0184-1 - CBCD Performed By: #### L 3100.5310, L500.4050, L501.9520, L100.0100 ####[facility] [address] [place], [address] MCH (RBC) [Entitic mass] 32.1 pg High 27.0-32.0 [facility] Comment on above: Order Comment: Order Date: 08/06/24Order Info: 0184-1 - CBCD Performed By: #### L 3100.5310, L500.4050, L501.9520, L100.0100 ####[facility] [address] [place], [address] MCHC (RBC) [Mass/Vol] 35.8 g/dL Normal 32-36 [facility] Comment on above: Order Comment: Order Date: 08/06/24Order Info: 0184-1 - CBCD Performed By: #### L 3100.5310, L500.4050, L501.9520, L100.0100 ####[facility] [address] [place], [address] MCV (RBC) [Entitic vol] 89.6 fL Normal 80-94 [facility] Comment on above: Order Comment: Order Date: 08/06/24Order Info: 0184- - CBCD Performed By: #### L 3100.5310, L500.4050, L501.9520, L100.0100 ####[facility] [address] [place], [address] Monocytes/100 WBC (Bld) 10.7 % High 0-10 [facility] Comment on above: Order Comment: Order Date: 08/06/24Order Info: 0184-1 - CBCD Performed By: #### L 3100.5310, L500.4050, L501.9520, L100.0100 ####[facility] [address] [place], [address] Neutrophils/100 WBC (Bld) 68.0 % Normal 47-70 [facility] Comment on above: Order Comment: Order Date: 08/06/24Order Info: 0184-1 - CBCD Performed By: #### L 3100.5310, L500.4050, L501.9520, L100.0100 ####[facility] [address] [place], [address] Nucleated RBC (Bld) [#/Vol] 0 10*3/uL Normal 0-5 [facility] Comment on above: Order Comment: Order Date: 08/06/24Order Info: 0184-1 - CBCD Performed By: #### L 3100.5310, L500.4050, L501.9520, L100.0100 ####[facility] [address] [place], [address] Platelet mean volume (Bld) [Entitic vol] 11.5 fL Normal 6.2-12.0 [facility] Comment on above: Order Comment: Order Date: 08/06/24Order Info: 0184-1 - CBCD Performed By: #### L 3100.5310, L500.4050, L501.9520, L100.0100 ####[facility] [address] [place], [address] Platelets (Bld) [#/Vol] 206 10*3/uL Normal 150-450 [facility] Comment on above: Order Comment: Order Date: 08/06/24Order Info: 0184-1 - CBCD Performed By: #### L 3100.5310, L500.4050, L501.9520, L100.0100 ####[facility] [address] [place], [address] RBC (Bld) [#/Vol] 4.71 10*6/uL Normal 4.6-6.2 [facility] Comment on above: Order Comment: Order Date: 08/06/24Order Info: 0184-1 - CBCD Performed By: #### L 3100.5310, L500.4050, L501.9520, L100.0100 ####[facility] [address] [place], [address] RDW SD 40.3 fl Normal 35.1-43.9 [facility] Comment on above: Order Comment: Order Date: 08/06/24Order Info: 0184-1 - CBCD Performed By: #### L 3100.5310, L500.4050, L501.9520, L100.0100 ####[facility] [address] [place], [address] WBC (Bld) [#/Vol] 7.0 10*3/uL Normal 4.4-11.0 [facility] Comment on above: Order Comment: Order Date: 08/06/24Order Info: 0184-1 - CBCD Performed By: #### L 3100.5310, L500.4050, L501.9520, L100.0100 ####[facility] [address] [place], [address] Carbon dioxide, total [Moles /volume] in Central venous bloodOrdered By: Chilo Carpio on 09-15-2024 CO2 [Moles/Vol] 22.7 mmol/L 21.0-32.0 [facility] Chloride assayOrdered By: Vidal Carpio on 09-15-2024 Chloride [Moles/Vol] 106 mmol/L 98-108 [facility] Comprehensive Metabolic Prof ilon 09-15-2024 Albumin [Mass/Vol] 4.5 g/dL Normal 3.5-5.0 [facility] Comment on above: Order Comment: Order Date: 08/06/24Order Info: 0786-1 - CMPOrder Info: 3016-3 - TSH Performed By: #### L 3100.5310, L500.4050, L501.9520, L100.0100 ####[facility] [address] [place], [address] Albumin/Globulin [Mass ratio] 1.7 {ratio} Normal 0.9-2.4 [facility] Comment on above: Order Comment: Order Date: 08/06/24Order Info: 0786-1 - CMPOrder Info: 3016-3 - TSH Performed By: #### L 3100.5310, L500.4050, L501.9520, L100.0100 ####[facility] [address] [place], [address] ALK PHOS 75 U/L Normal 40-129 [facility] Comment on above: Order Comment: Order Date: 08/06/24Order Info: 0786-1 - CMPOrder Info: 3016-3 - TSH Performed By: #### L 3100.5310, L500.4050, L501.9520, L100.0100 ####[facility] [address] [place], [address] ALT [Catalytic activity/Vol] 54 U/L High <=46 [facility] Comment on above: Order Comment: Order Date: 08/06/24Order Info: 0786-1 - CMPOrder Info: 3016-3 - TSH Performed By: #### L 3100.5310, L500.4050, L501.9520, L100.0100 ####[facility] [address] [place], [address] AST [Catalytic activity/Vol] 79 U/L High <=37 [facility] Comment on above: Order Comment: Order Date: 08/06/24Order Info: 0786-1 - CMPOrder Info: 3016-3 - TSH Performed By: #### L 3100.5310, L500.4050, L501.9520, L100.0100 ####[facility] [address] [place], [address] Bilirubin [Mass/Vol] 0.55 mg/dL Normal 0.00-1.30 [facility] Comment on above: Order Comment: Order Date: 08/06/24Order Info: 0786-1 - CMPOrder Info: 3016-3 - TSH Performed By: #### L 3100.5310, L500.4050, L501.9520, L100.0100 ####[facility] [address] [place], [address] BUN/CRE 13.6 RATIO Normal 10-20 [facility] Comment on above: Order Comment: Order Date: 08/06/24Order Info: 0786-1 - CMPOrder Info: 3 - TSH Performed By: #### L 3100.5310, L500.4050, L501.9520, L100.0100 ####[facility] [address] [place], [address] Calcium [Mass/Vol] 9.4 mg/dL Normal 7.6-11.0 [facility] Comment on above: Order Comment: Order Date: 08/06/24Order Info: 0786-1 - CMPOrder Info: 3 - TSH Performed By: #### L 3100.5310, L500.4050, L501.9520, L100.0100 ####[facility] [address] [place], [address] Chloride [Moles/Vol] 106 mmol/L Normal 98-108 [facility] Comment on above: Order Comment: Order Date: 08/06/24Order Info: 0786-1 - CMPOrder Info: 3 - TSH Performed By: #### L 3100.5310, L500.4050, L501.9520, L100.0100 ####[facility] [address] [place], [address] CO2 [Moles/Vol] 22.7 mmol/L Normal 21.0-32.0 [facility] Comment on above: Order Comment: Order Date: 08/06/24Order Info: 0786-1 - CMPOrder Info: 3 - TSH Performed By: #### L 3100.5310, L500.4050, L501.9520, L100.0100 ####[facility] [address] [place], [address] Creatinine [Mass/Vol] 1.16 mg/dL Normal 0.70-1.20 [facility] Comment on above: Order Comment: Order Date: 08/06/24Order Info: 0786-1 - CMPOrder Info: 3 - TSH Performed By: #### L 3100.5310, L500.4050, L501.9520, L100.0100 ####[facility] [address] [place], [address] GAP 11 Normal 5-15 [facility] Comment on above: Order Comment: Order Date: 08/06/24Order Info: 0786- - CMPOrder Info: 3015-06 - TSH Performed By: #### L 3100.5310, L500.4050, L501.9520, L100.0100 ####[facility] [address] [place], [address] GFR/1.73 sq M.predicted among non-blacks MDRD (S/P/Bld) [Vol rate/Area] 79 mL/min/{1.73_m2} Normal >60 [facility] Comment on above: Order Comment: Order Date: 08/06/24Order Info: 0786- - CMPOrder Info: 3015-06 - TSH Result Comment: mL/m in/1.73m2 CKD-EPI Creatinine Equation (2020) Performed By: #### L 3100.5310, L500.4050, L501.9520, L100.0100 ####[facility] [address] [place], [address] Globulin (S) [Mass/Vol] 2.7 g/dL Normal 2.2-4.2 [facility] Comment on above: Order Comment: Order Date: 08/06/24Order Info: 0786-1 - CMPOrder Info: 3015-06 - TSH Performed By: #### L 3100.5310, L500.4050, L501.9520, L100.0100 ####[facility] [address] [place], [address] Glucose [Mass/Vol] 105 mg/dL High 70-99 [facility] Comment on above: Order Comment: Order Date: 08/06/24Order Info: 0786-1 - CMPOrder Info: 3 - TSH Performed By: #### L 3100.5310, L500.4050, L501.9520, L100.0100 ####[facility] [address] [place], [address] Potassium [Moles/Vol] 3.7 mmol/L Normal 3.3-5.1 [facility] Comment on above: Order Comment: Order Date: 08/06/24Order Info: 0786- - CMPOrder Info: 3015-06 - TSH Performed By: #### L 3100.5310, L500.4050, L501.9520, L100.0100 ####[facility] [address] [place], [address] Sodium [Moles/Vol] 139 mmol/L Normal 133-145 [facility] Comment on above: Order Comment: Order Date: 08/06/24Order Info: 0786- - CMPOrder Info: 3 - TSH Performed By: #### L 3100.5310, L500.4050, L501.9520, L100.0100 ####[facility] [address] [place], [address] T PROT 7.1 g/dL Normal 5.9-8.4 [facility] Comment on above: Order Comment: Order Date: 08/06/24Order Info: 0786-1 - CMPOrder Info: 3 - TSH Performed By: #### L 3100.5310, L500.4050, L501.9520, L100.0100 ####[facility] [address] [place], [place], [address] Urea nitrogen [Mass/Vol] 16 mg/dL Normal 4-19 [facility] Comment on above: Order Comment: Order Date: 08/06/24Order Info: 0786-1 - CMPOrder Info: 3016-3 - TSH Performed By: #### L 3100.5310, L500.4050, L501.9520, L100.0100 ####[facility] [address] [place], [address] Eosinophil percentageOrdered By: Chilo Carpio on 09-15-2024 Eosinophils/100 WBC (Bld) 2.6 % 0-5 [facility] Erythrocyte distribution wid th ratioOrdered By: Chilo Carpio on 09-15-2024 Erythrocyte distribution width (RBC) [Ratio] 12.3 % 11.6-14.6 [facility] Erythrocyte distribution wid th standard deviationOrdered By: Chilo Carpio on 09-15-2024 Erythrocyte distribution width (RBC) [Ratio] 40.3 fl 35.1-43.9 [facility] Free testosterone percentage Ordered By: Chilo Carpio on 09-15-2024 Testosterone Free/Testosterone.total [Mass fraction] 1.98 % 1.50-4.20 [facility] Comment on above: Performed at: [address] [id number] Director: Pierre Castro PhD, Phone: [phone] at: [facility] [address] [id number] Director: Mitesh Lion MD, Phone: [phone] Glomerular filtration rate ( GFR) estimation/1.73 sq m using serum, plasma, or whole bOrdered By: Chilo Carpio on 09-15-2024 GFR/1.73 sq M.predicted among non-blacks MDRD (S/P/Bld) [Vol rate/Area] 79 mL/min/{1.73_m2} >60 [facility] Comment on above: mL/min/1.73m2 CKD-EP I Creatinine Equation (2020) Hematocrit Auto (Bld) [Volum e fraction]Ordered By: Chilo Carpio on 09-15-2024 Hematocrit (Bld) [Volume fraction] 42.2 % 40-54 [facility] Hemoglobin measurementOrdere d By: Chilo Carpio on 09-15-2024 Hemoglobin (Bld) [Mass/Vol] 15.1 g/dL 13.0-16.5 [facility] Immature granulocytes/100 WB C Auto (Bld)Ordered By: Chilo Carpio on 09-15-2024 Immature granulocytes/100 WBC (Bld) 0.300 % 0.0-0.9 [facility] Comment on above: IG% - Immature Granu locytes (promyelocytes, myelocytes and metamyelocytes) > 1% indicates that a LEFT SHIFT is Present. Laboratory - Chemistry and C hemistry - challengeOrdered By: Chilo Carpio on 09-15-2024 AST [Catalytic activity/Vol] 79 U/L High <38 [facility] MCV (mean corpuscular volume ) determinationOrdered By: Chilo Carpio on 09-15-2024 MCV (RBC) [Entitic vol] 89.6 fL 80-94 [facility] Mean corpuscular hemoglobin (MCH) determinationOrdered By: Chilo Carpio on 09-15-2024 MCH (RBC) [Entitic mass] 32.1 pg High 27.0-32.0 [facility] Mean corpuscular hemoglobin concentration (MCHC) determinationOrdered By: Chilo Carpio on 09-15-2024 MCHC (RBC) [Mass/Vol] 35.8 g/dL 32-36 [facility] Mean platelet volume determi nationOrdered By: Chilo Carpio on 09-15-2024 Platelet mean volume (Bld) [Entitic vol] 11.5 fL 6.2-12.0 [facility] Monocyte percentageOrdered B y: Chilo Carpio on 09-15-2024 Monocytes/100 WBC (Bld) 10.7 % High 0-10 [facility] Neutrophil percentageOrdered By: Chilo Carpio on 09-15-2024 Neutrophils/100 WBC (Bld) 68.0 % 47-70 [facility] Nucleated red blood cell per centageOrdered By: Chilo Carpio on 09-15-2024 Nucleated RBC/100 WBC (Bld) [Ratio] 0 % 0-5 [facility] Platelet countOrdered By: Vidal Carpio on 09-15-2024 Platelets (Bld) [#/Vol] 206 10*3/uL 150-450 [facility] Potassium measurement (mass/ volume)Ordered By: Chilo Carpio on 09-15-2024 Potassium (Unsp spec) [Mass/Vol] 3.7 mmol/L 3.3-5.1 [facility] RBC Auto (Bld) [#/Vol]Ordere d By: Chilo Carpio on 09-15-2024 RBC (Bld) [#/Vol] 4.71 10*6/uL 4.6-6.2 [facility] Serum creatinine measurement (mass/volume)Ordered By: Chilo Carpio on 09-15-2024 Creatinine [Mass/Vol] 1.16 mg/dL 0.70-1.20 [facility] Serum globulin measurementOr dered By: Chilo Carpio on 09-15-2024 Globulin (S) [Mass/Vol] 2.7 g/dL 2.2-4.2 [facility] Serum glucose measurement (m ass/volume)Ordered By: Chilo Carpio on 09-15-2024 Glucose [Mass/Vol] 105 mg/dL High 70-99 [facility] Serum or plasma alanine garcia otransferase (ALT) measurementOrdered By: Chilo Carpio on 09-15-2024 ALT [Catalytic activity/Vol] 54 U/L High <47 [facility] Serum or plasma albumin luis urement (mass/volume)Ordered By: Chilo Carpio on 09-15-2024 Albumin [Mass/Vol] 4.5 g/dL 3.5-5.0 [facility] Serum or plasma albumin/glob ulin mass ratioOrdered By: Chilo Carpio on 09-15-2024 Albumin/Globulin [Mass ratio] 1.7 {ratio} 0.9-2.4 [facility] Serum or plasma alkaline reji sphatase measurementOrdered By: Chilo Carpio on 09-15-2024 ALP [Catalytic activity/Vol] 75 U/L 40-129 [facility] Serum or plasma calcium luis urement (mass/volume)Ordered By: Chilo Carpio on 09-15-2024 Calcium [Mass/Vol] 9.4 mg/dL 7.6-11.0 [facility] Serum or plasma free testost erone measurement (mass/volume)Ordered By: Chilo Carpio on 09-15-2024 Testosterone Free [Mass/Vol] 7.64 ng/dL 5.00-21.00 [facility] Serum or plasma urea nitroge n measurement (mass/volume)Ordered By: Chilo Carpio on 09-15-2024 Urea nitrogen [Mass/Vol] 16 mg/dL 4-19 [facility] Sodium levelOrdered By: Chilo Carpio on 09-15-2024 Sodium [Moles/Vol] 139 mmol/L 133-145 [facility] TSH DL <= 0.005 mIU/L QnOrde red By: Chilo Carpio on 09-15-2024 TSH Qn 2.750 uIU/mL 0.300-4.200 [facility] Testosterone, totalOrdered B y: Chilo Carpio on 09-15-2024 Testosterone [Mass/Vol] 386 ng/dL 264-916 [facility] Comment on above: Adult male reference interval is based on a population ofhealthy nonobese males (BMI <30) between 19 and 39 yearsold. jose alberto Smith.al. JCEM 2017,102;8067-7571. PMID:67691382. Thyroid Stim Hormone (TSH)on 09-15-2024 TSH 2.750 uIU/mL Normal 0.300-4.200 [facility] Comment on above: Order Comment: Order Date: 08/06/24Order Info: 0786-1 - CMPOrder Info: 3016-3 - TSH Performed By: #### L 3100.5310, L500.4050, L501.9520, L100.0100 ####[facility] [address] [place], [place], [id number] Total proteinOrdered By: Angélica Carpio on 09-15-2024 Protein [Mass/Vol] 7.1 g/dL 5.9-8.4 [facility] White blood cell (WBC) count Ordered By: Chilo Carpio on 09-15-2024 WBC (Bld) [#/Vol] 7.0 10*3/uL 4.4-11.0 [facility] Vital Signs Date Time Vital Sign Value Performing Clinician Lo watt 11-06-2024 13:32-0400 Body height 193.[address] Chilo Carpio MD Work Phone: [facility] 11-06-2024 13:32-0400 Body mass index (BMI) [Ratio] 34.5 kg/m2 Dr. Chilo Carpio MD Work Phone: [facility] 11-06-2024 13:32-0400 Body weight 128.[address] Chilo Carpio MD Work Phone: [facility] 11-06-2024 13:32-0400 Diastolic blood pressure 85 mm[Hg] Dr. Chilo Carpio MD Work Phone: [facility] 11-06-2024 13:32-0400 Heart rate 69 /min Dr. Chilo Carpio MD Work Phone: [facility] 11-06-2024 13:32-0400 SaO2% (BldA) [Mass fraction] 97 % Dr. Chilo Carpio MD Work Phone: [facility] 11-06-2024 13:32-0400 Systolic blood pressure 129 mm[Hg] Dr. Chilo Carpio MD Work Phone: [facility] Encounters Encounter Date Encounter Type Care Provider Facility Start: 03-09-2025 ambulatory Dasha Goode Facility:[facility] Start: 03-02-2025 End: 03-02-2025 ambulatory Chilo Carpio Facility:[facility] Start: 02-22-2025 Encounter for other preprocedural examination Roya Arellano [facility] Start: 02-15-2025 End: 02-15-2025 ambulatory Chilo Carpio Facility:[facility] Start: 02-10-2025 End: 02-10-2025 ambulatory Shilo Antunez Facility:[facility] Start: 11-06-2024 End: 11-06-[address] Shilo Antunez MD -[facility] Work Phone: Start: 11-06-2024 End: 11-06-[address] Chilo Carpio MD Work Phone: [facility] Start: 10-06-2024 End: 10-06-[address] Chilo Carpio MD Work Phone: [facility] Work Phone: Start: 10-06-2024 End: 10-06-[address] Chilo Carpio MD -Ultrasound [facility] Work Phone: Start: 10-06-2024 End: 10-06-2024 ambulatory Chilo Carpio Facility:[facility] Start: 09-16-2024 End: 09-16-[address] Chilo Carpio MD Work Phone: [facility] Work Phone: Start: 09-16-2024 End: 09-16-[address] Chilo Carpio MD -Laboratory [place] Start: 09-15-2024 End: 09-16-[address] Chilo Carpio MD Work Phone: [facility] Work Phone: Start: 09-15-2024 End: 09-15-[address] Chilo Carpio MD -Laboratory [place] Start: 09-15-2024 End: 09-15-2024 ambulatory Chilo Carpio Facility:[facility] Procedures Date Procedure Procedure Detail Performing [...] HAVtotal antibody results to IgM (e.g., panel #[id number] HAVAntibody w/ Rfx).Performed at: [facility] [address] [id number] Director: Pierre Castro PhD, Phone: [phone] Start: 09-16-2024 Hepatitis C antibody measurement Dr. [...] HCV Quant by PCR testing - HCVPCR #[id number] Non Reactive: < 0.8 Equivocal: >/= 0.8 to < 1.0 Reactive: >/= 1.0The CDC requires that a reactive/equivocal HCV antibody result be sent out for confirmation. HCV Quant by PCR testing. Start: 09-16-2024 Measurement of immun oglobulin A in serum specimen Dr. Chilo Carpio MD Work Phone: Plan of Treatment Date Care Activity Detail Author Serum testosterone measurement [facility] Testosterone Free [M ass/volume] in Serum or Plasma [facility] Testosterone measurement [facility] Payers Date Payer Category Payer Self-pay 2024 Private Health Insurance [id number] Private Health Insurance [id number] Unknown [id number] Unknown [id number] 2.16.8 [id number] Unknown [id number] 2.16.8 [id number] Unknown [id number] 2.16.8 [id number] Unknown [id number] 2.16.8 [id number] Unknown [id number] 2.16.8 [id number] Unknown [id number] 2.16.8 [id number] Unknown [id number] 2.16.8 [id number] Unknown [id number] 2.16.8 [id number] Social History Date Type Detail Facility Start: 12-03-2013 End: 10-09-2024 Tobacco smoking status MDIS Smokes tobacco daily (finding) [facility] Start: 1975 Sex Assigned At Male [facility] Start: 10-16-2024 Tobacco smoking stat us [facility] Ex-smoker (finding) [facility] Radiology Diagnostic study note 10-06-2024 Note Date & Type Note Facility 10-06-2024 Radiology Diagnostic study note [facility] Imaging Services [address] [place] [id number] ABD Limited w/ Elastography MR#: [id number] Acct: [id number] Name: AIDAN CERRATO Rep #: [id number] : 1975 M 48 From: Keenan Contreras MD PCP: Dr. Chilo Carpio MD Status: REG CLI Study:ABD Limited w/ Elastography Date of Exa m: 10/06/24 Exam# [id number] Ordering Dr: Stacy Sanchez MD PROCEDURE: ABD LIMITED W/ ELASTOGRAPHY REASON FOR EXAM: ELEVATED LIVER ENZYMES COMPARISON: None. TECHNIQUE: Right upper quadrant abdominal ultrasound. [employer] ElastQ Imaging shear wave elastography for non-invasive assessment of liver tissue stiffness. [employer] EPIQ Elite. FINDINGS: LIVER: Size: Enlarged (hepatomegaly) [...] measurement may be in question. Reading Location: [place] [address] CC: Dr. Adeline Sanchez MD; Dr. Chilo Carpio MD ~ Conference Organizer: Signed [facility] Evaluation note Note Date & Type Note Facility Evaluation note No assessment information availa [facility] Work Phone: Reason for referral (narrative) Note Date & Type Note Facility Reason for referral (narrative) No reason for referral information available [facility] Work Phone: Chief Complaint and Reason for Visit Chief Complaint Admit Date OTHER SPECIFIED ABNORMAL FINDINGS OF BLO OD ATTORNEY GENERAL October 06, 2024 7:22am Chief Complaint Admit Date OTHER SPECIFIED ABNORMAL FINDINGS OF BLO OD ATTORNEY GENERAL October 06, 2024 7:22am ELEVATED LIVER ENZYMES [...] ized section and content) DATE CREATED AUTHOR 03/10/2025 [facility] FOR RECORDS PERTAINING TO PATIENTS WHO [...] BE BASED ON THE PRIMARY CLINICAL RECORDS. [employer] provides no warranty or guarantee of the accuracy or completeness of information in this document.
== END | disposition home or self-care (01) ==
PROVIDERS: PCP Family Medicine; Referring Provider Internal Medicine; Visit Provider Internal Medicine
DX: Z00.00 Encounter for general adult medical examination without abnormal findings (principal)
CPT/HCPCS: 36415